=== PATIENT | male | born 1985 | race Two or more races ===

== ENCOUNTER 2022-11-01 23:25 | Inpatient (IN) | payer MEDICAID, OTHER, SELFPAY ==
--- NOTE | ~2022-11-01 | XR_ITS ---
EXAMINATION: XR CHEST CLINICAL INFORMATION: Chest pain COMPARISON: None TECHNIQUE: Frontal view of the chest was obtained. FINDINGS: Lung volumes are symmetric. No focal consolidation is seen. No evidence of pneumothorax, significant pleural effusion, or overt pulmonary edema. Cardiac silhouette appears borderline enlarged. No acute osseous findings are seen. XR/XR chest 1V IMPRESSION: No acute pulmonary findings. Borderline enlarged cardiac silhouette.
--- NOTE | ~2022-11-01 | CT_ITS ---
EXAMINATION: CT ANGIOGRAM OF THE CHEST; CONTRAST-ENHANCED CT OF THE ABDOMEN AND PELVIS INDICATION: Question PE, abdominal pain COMPARISON: Chest x-ray from earlier today TECHNIQUE: 100 MLO Omnipaque 350 IV contrast was utilized. Multidetector helical imaging was performed through the chest per PE protocol. Coronal, sagittal, and MIP images of the chest were created. In addition, multidetector helical imaging was performed through the abdomen and pelvis. Coronal and sagittal reformatted images were created at the technologist workstation. DOSE LOWERING TECHNIQUES: This CT examination was performed using dose optimization techniques as appropriate, variously including the following: - Automated exposure control - Adjustment of mA and/or kV according to patient size (this includes techniques or standardized protocols for targeted exams were dose is matched to indication/reason for exam; i.e. extremities or head) - Use of iterative reconstruction technique DLP: 2162 mGy-cm FINDINGS: Chest: While no central or lobar pulmonary embolus is seen, evaluation of the segmental and subsegmental vessels is limited due to bolus timing, and emboli at these levels cannot be entirely excluded. No evidence of aortic dissection. Limited detailed evaluation of the lung parenchyma due to respiratory motion artifact. No regions of consolidation bilaterally. No pneumothorax. Trace left pleural effusion noted. Visualized thyroid gland is unremarkable. No discrete mediastinal lymphadenopathy is seen. There is mild subcutaneous fat stranding throughout the mediastinum. Borderline cardiomegaly without pericardial effusion. Coronary artery calcifications are present. No axillary lymphadenopathy is present. Abdomen/Pelvis: Limited evaluation in some regions due to motion artifact. The liver demonstrates a nodular contour consistent with cirrhosis. No intrahepatic biliary ductal dilatation. The gallbladder is grossly unremarkable. The spleen is enlarged, measuring approximately 18.6 cm in length. The pancreas and adrenal glands appear unremarkable. Bilateral nephrograms are symmetric. No hydronephrosis. No obstructing renal or ureteral calculi are present. The urinary bladder is unremarkable. The prostate and seminal vesicles are unremarkable. The small and large bowel are unremarkable without evidence of obstruction or significant wall thickening, though evaluation for inflammation is somewhat limited in the setting of diffuse mesenteric edema. The appendix is not well seen with suspected to be nondilated. Mild volume of ascites is present predominantly in the upper abdomen. No free air is seen. Anasarca is present. Recanalized umbilical vein is noted along with upper abdominal varices. No retroperitoneal or pelvic lymphadenopathy is seen. No acute osseous findings. CT/CT abdomen pelvis w IV con IMPRESSION: 1. While no central or lobar pulmonary embolus is seen, evaluation of the segmental and subsegmental vessels is limited due to bolus timing, and emboli at these levels cannot be entirely excluded. 2. Cirrhotic morphology of the liver with sequela of portal hypertension including splenomegaly, varices, and mild ascites. 3. Trace left pleural effusion. 4. Coronary artery calcifications. Correlation with cardiac risk factors is recommended.
[2022-11-01 23:28] VITALS: BP 134/75; PULSE 105; RESP 19; TEMP 36.4; O2SAT 91; BMI 46.7
--- NOTE | 2022-11-01 23:34 | ECG_ITS ---
Test Reason : cp Blood Pressure : / mmHG Vent. Rate : 102 BPM Atrial Rate : 102 BPM P-R Int : 216 ms QRS Dur : 118 ms QT Int : 388 ms P-R-T Axes : 008 098 -09 degrees QTc Int : 505 ms Sinus tachycardia with 1st degree A-V block Rightward axis Incomplete right bundle branch block Cannot rule out Inferior infarct , age undetermined ST & T wave abnormality, consider anterior ischemia or RV strain Abnormal ECG No previous ECGs available Referred By: Abhi Velez Electronically Signed By:REGLA SMITH MD
[2022-11-01 23:50] LABS: MANUAL DIFF FLAG NO
[2022-11-01 23:51] LABS: Basophils Percent Auto 0.2 % (0-2); Eosinophils Percent Auto 0.2 % (0-4); Hematocrit 27.3 % (42.0-52.0); Hemoglobin 9.1 g/dl (14.0-18.0); Imm Gran Abs Auto 0.02 X10*3/uL (0.00-0.03); Imm Gran Pct Auto 0.4 % (0.0-0.4); Lymphocytes Absolute Auto 0.4 X10*3/uL (1.2-4.9); Lymphocytes Percent Auto 9.2 % (20-40); Mean Corpuscular HGB Conc 33.3 g/dl (31.0-36.0); Mean Corpuscular Hemoglobin 25.6 pg (27.0-33.0); Mean Corpuscular Volume 76.9 fL (80.0-98.0); Mean Platelet Volume 9.2 fL (9.4-12.4); Monocytes Absolute Auto 0.4 X10*3/uL (0.1-1.2); Monocytes Percent Auto 8.3 % (2-11); Neutrophils Absolute Auto 3.7 x10*3/uL (2.0-8.3); Neutrophils Percent Auto 81.7 % (45-73); Platelet Count 102 X10*3/uL (160-400); Red Blood Count 3.55 X10*6/uL (4.60-5.80); Red Cell Distribution Width 18.2 % (11.0-16.0); White Blood Count 4.5 X10*3/uL (4.8-10.8)
[2022-11-02] VITALS (13 sets, daily range): BP systolic 104–130; BP diastolic 52–81; PULSE 101–113; RESP 14–20; TEMP 36.5–37.5; O2SAT 92–96; BMI 44.5
[2022-11-02 00:12] LABS: Anion Gap 22 (12-20); Blood Urea Nitrogen 42 mg/dL (9-16); Calcium 8.7 mg/dL (8.4-10.2); Carbon Dioxide 18 mmol/L (22-29); Chloride 91 mmol/L (96-108); Creatinine Clr Calc Pharmacy 102.2; Estimated Glomerular Filt Rate 57; Glucose Random 114 mg/dL (60-115); Potassium 4.7 mmol/L (3.3-5.1); Sodium 126 mmol/L (135-145)
[2022-11-02 00:18] LABS: Troponin-I High Sensitivity 43.6 ng/L (<3.5-35.0)
[2022-11-02 00:34] LABS: Alanine Aminotransferase 17 U/L (0-40); Albumin Level 4.2 g/dL (3.5-5.0); Alkaline Phosphatase 80 U/L (39-117); Aspartate Amino Transferase 38 U/L (5-37); Bilirubin Direct 1.6 mg/dL (0.0-0.5); Ethanol 132 mg/dL; Lipase 94 U/L (8-78); Total Protein 9.5 g/dL (6.5-8.0)
[2022-11-02 00:39] LABS: B Type Natriuretic Peptide 903 pg/mL (<100)
[2022-11-02 00:53] LABS: Bilirubin Total 2.7 mg/dL (0.0-1.0)
--- NOTE | 2022-11-02 01:02 | ED_ITS ---
HPI - Chest Pain General Chief Complaint: Chest Pain Stated Complaint: Chest pain Time Seen by Provider: 11/01/22 23:57 History of Present Illness HPI narrative: Patient is a 36-year-old male with a long history of alcohol use. History of diabetes history of hypertension history of hypercholesterolemia. No history of smoking no history of [place] presented today with having chest tightness that is been ongoing for the last 4 days. Associated with shortness of breath and some diaphoresis. In addition patient has been consuming large quantities of alcohol since . Patient claims that from time to time he would drink. He has been on a binge. No abdominal pain positive generalized malaise. No history of pulmonary emboli not on blood thinners. Patient normally goes to [facility]. Never been to [facility] in the past. Positive increased leg swelling. Related Data Allergies Allergy/AdvReac Type Severity Reaction Status Date / Time No Known Allergies Allergy Verified 11/01/22 23:33 Review of Systems Review of Systems: Positive shortness of breath Positive chest pain Positive generalized malaise Yes all other systems are reviewed and are negative [facility] Past Medical History Attestation statement: The following information was validated with the patient. Social History Social History Advance Directives: No Advance Directives Information Provided: Yes Physical Exam Vital Signs: Vital Signs: Last Vital Signs Temp 97.6 F 11/01/22 23:28 Pulse 105 H 11/01/22 23:28 Resp 19 11/01/22 23:28 BP 134/75 11/01/22 23:28 Pulse Ox 91 L 11/01/22 23:28 O2 Del Method 11/01/22 23:28 BMI result Body Mass Index 46.7 Appearance: Alert. Oriented X3. No acute distress. Eyes: Pupils equal, round and reactive to light. ENT: Pharynx normal. Neck: Normal inspection. Neck supple. No lymph nodes noted. No crepitus CVS: Tachycardic but regular Respiratory: No respiratory distress. Breath sounds normal. No Wheezing. No rales Abdomen: Soft and nontender. No rigidity. No distention. good BS x4 Skin: Skin warm and dry. Normal skin color. Normal skin turgor. Extremities: Positive lower extremity edema. Neurovascular intact to all extremities. No Lacerations. No Rash Neuro: Oriented X 3. No motor deficit. No sensory deficit. Moving all extermities. No slurred speech. 2+ pitting edema bilateral lower extremity MDM - Chest Pain MDM Narrative Medical decision making narrative: Patient's EKG shows in the sinus pattern heart rate is 100 MS QRS is normal. QT is prolonged at 500. Patient has diffuse T-wave inversion over lead V2 [address] segment depression. We do not have an old EKG to compare. Patient's alcohol is 132. Troponin mildly elevated BMP elevated. Question cardiomyopathy causing the shortness of breath. Will also get a CTA of the chest to rule out the possibility of a PE. Patient's sodium was 126. COVID test is still pending. Chest x-ray showed no pneumonia no pneumothorax no CT evidence for congestive heart failure. 01:30 patient's case discussed with the hospitalist team. Agree to a plan of admission. CTA of the chest is still pending to rule out the possibility of p ulmonary emboli. CT of the abdomen will also be done at the same time. Differential Diagnosis Differential diagnosis: Likely fracture of rib, pneumothorax, unstable angina pectoris, atypical chest pain, st elevation myocardial infarction, costochondritis and chest pain Differential diagnosis: Alcoholic ketoacidosis, diabetic ketoacidosis, lactic acidosis, congestive heart failure Medical Records Data Attestation: I reviewed the patient's medical records. Lab Data Attestation: I reviewed the patient's lab results. Result diagrams: 11/01/22 23:45 11/01/22 23:45 Labs: Lab Results 11/01/22 11/01/22 11/01/22 Range/Units 23:45 23:45 23:45 WBC 4.5 L (4.8-10.8) X10*3/uL RBC 3.55 L (4.60-5.80) X10*6/uL Hgb 9.1 L (14.0-18.0) g/dl Hct 27.3 L (42.0-52.0) % MCV 76.9 L (80.0-98.0) fL MCH 25.6 L (27.0-33.0) pg MCHC 33.3 (31.0-36.0) g/dl RDW 18.2 H (11.0-16.0) % Plt Count 102 L (160-400) X10*3/uL MPV 9.2 L (9.4-12.4) fL Immature Gran % (Auto) 0.4 (0.0-0.4) % Neut % (Auto) 81.7 H (45-73) % Lymph % (Auto) 9.2 L (20-40) % [place] % (Auto) 8.3 (2-11) % Eos % (Auto) 0.2 (0-4) % Baso % (Auto) 0.2 (0-2) % Lymph # (Auto) 0.4 L (1.2-4.9) X10*3/uL [place] # (Auto) 0.4 (0.1-1.2) X10*3/uL Eos # (Auto) 0.0 (0.0-0.4) X10*3/uL Baso # (Auto) 0.0 (0.0-0.2) X10*3/uL Abs Immat Gran (auto) 0.02 (0.00-0.03) X10*3/uL Absolute Neuts (auto) 3.7 (2.0-8.3) x10*3/uL Absolute Nucleated RBC 0.000 (0.0-0.012) X10*3/uL Nucleated RBC % (auto) 0.0 (0.0-0.2) /100WBC O2 Saturation % ABG pH at Pt Temp (7.35-7.45) ABG pCO2 at Pt Temp (32-45) mmHg ABG pO2 at Pt Temp (83-108) mmHg ABG HCO3 (22-26) mmol/L ABG Base Excess (Actual) mmol/L Sodium 126 L (135-145) mmol/L Potassium 4.7 (3.3-5.1) mmol/L Chloride 91 L (96-108) mmol/L Carbon Dioxide 18 L (22-29) mmol/L Anion Gap 22 H (12-20) BUN 42 H (9-16) mg/dL Creatinine 1.41 H (0.5-1.4) mg/dL Estim Creat Clear Calc 102.2 Estimated GFR 57 Random Glucose 114 (60-115) mg/dL Calcium 8.7 (8.4-10.2) mg/dL Total Bilirubin 2.7 H (0.0-1.0) mg/dL Direct Bilirubin 1.6 H (0.0-0.5) mg/dL AST 38 H (5-37) U/L ALT 17 (0-40) U/L Alkaline Phosphatase 80 (39-117) U/L Troponin I High Sens 43.6 H (<3.5-35.0) ng/L B-Natriuretic Peptide (<100) pg/mL Total Protein 9.5 H (6.5-8.0) g/dL Albumin 4.2 (3.5-5.0) g/dL Lipase 94 H (8-78) U/L Ethyl Alcohol 132 mg/dL 11/01/22 11/02/22 Range/Units 23:45 00:59 WBC (4.8-10.8) X10*3/uL RBC (4.60-5.80) X10*6/uL Hgb (14.0-18.0) g/dl Hct (42.0-52.0) % MCV (80.0-98.0) fL MCH (27.0-33.0) pg MCHC (31.0-36.0) g/dl RDW (11.0-16.0) % Plt Count (160-400) X10*3/uL MPV (9.4-12.4) fL Immature Gran % (Auto) (0.0-0.4) % Neut % (Auto) (45-73) % Lymph % (Auto) (20-40) % [place] % (Auto) (2-11) % Eos % (Auto) (0-4) % Baso % (Auto) (0-2) % Lymph # (Auto) (1.2-4.9) X10*3/uL [place] # (Auto) (0.1-1.2) X10*3/uL Eos # (Auto) (0.0-0.4) X10*3/uL Baso # (Auto) (0.0-0.2) X10*3/uL Abs Immat Gran (auto) (0.00-0.03) X10*3/uL Absolute Neuts (auto) (2.0-8.3) x10*3/uL Absolute Nucleated RBC (0.0-0.012) X10*3/uL Nucleated RBC % (auto) (0.0-0.2) /100WBC O2 Saturation 94.0 % ABG pH at Pt Temp 7.51 H (7.35-7.45) ABG pCO2 at Pt Temp 20 L* (32-45) mmHg ABG pO2 at Pt Temp 72 L (83-108) mmHg ABG HCO3 16 L (22-26) mmol/L ABG Base Excess (Actual) -4.1 mmol/L Sodium (135-145) mmol/L Potassium (3.3-5.1) mmol/L Chloride (96-108) mmol/L Carbon Dioxide (22-29) mmol/L Anion Gap (12-20) BUN (9-16) mg/dL Creatinine (0.5-1.4) mg/dL Estim Creat Clear Calc Estimated GFR Random Glucose (60-115) mg/dL Calcium (8.4-10.2) mg/dL Total Bilirubin (0.0-1.0) mg/dL Direct Bilirubin (0.0-0.5) mg/dL AST (5-37) U/L ALT (0-40) U/L Alkaline Phosphatase (39-117) U/L Troponin I High Sens (<3.5-35.0) ng/L B-Natriuretic Peptide 903 H (<100) pg/mL Total Protein (6.5-8.0) g/dL Albumin (3.5-5.0) g/dL Lipase (8-78) U/L Ethyl Alcohol mg/dL ABG Data Attestation: I personally reviewed and interpreted this ABG as follows: Interpretation: Respiratory alkalosis Critical Care Time Critical Care Time Critical Care Time: Yes Total Critical Care Time: 40 Attestation: I have personally provided 40 minutes of critical care time exclusive of time spent on separately billable procedures. Time includes review of lab data, radiology results, discussion with consultants, and monitoring for potential decompensation. Interventions were performed as documented above Discharge Plan Discharge Clinical Impression: Chest pain, Congestive heart failure Patient Disposition: Admitted As Inpatient
[2022-11-02 01:09] LABS: ABG Base Excess -4.1 mmol/L; ABG HCO3 16 mmol/L (22-26); ABG pCO2 20 mmHg (32-45); ABG pH 7.51 (7.35-7.45); ABG pO2 72 mmHg (83-108)
[2022-11-02 01:46] LABS: Acetone, serum QL Negative (Negative)
[2022-11-02 01:50] LABS: Influenza A PCR NEGATIVE (Negative); Influenza B PCR NEGATIVE (Negative); Resp Syncy Virus RNA Qual PCR NEGATIVE (Negative); SARS COV2 PCR INHOUSE NEGATIVE (Negative)
[2022-11-02 01:52] LABS: Lactic Acid 2.1 mmol/L (0.5-2.0)
[2022-11-02] MEDS: iohexoL 350 MG/ML 100 ML INFUS..BTL IV (02:15)
--- NOTE | 2022-11-02 02:43 | PC.NURSE ---
PT's V/S are stable, pt is connected to the telemetry due to when nurse arrived to the room pt was saturating to 90 %. Pt has NC 2l, and the oxygen increase to 96%. PT's spouse is at bedside. Pt is on the monitor and it shows sinus tachy. Pt has pitting edema +4 bilaterally on his ankles. Pt lungs sounds are clear, and he is a/o x5. Pt S1&S2 sound pounding 110 per min. Pt's pupils were dilated 6mm. Pt denies consuming substances only ETOH. will continue to monitor.
[2022-11-02 02:50] LABS: ABG Refer to POC result
[2022-11-02 03:24] LABS: Reflex Lactate? Lactic Acid Added
[2022-11-02 04:24] LABS: Troponin-I High Sensitivity 45.2 ng/L (<3.5-35.0)
[2022-11-02 04:58] LABS: Osmolality Urine 232 mosm/kg (373-1093)
--- NOTE | 2022-11-02 05:00 | PM.IMHP ---
History of Present Illness Date of Service: 11/02/22 Chief Complaint: Leg and abdomen swelling This is a 36-year-old male with pertinent history of alcohol use disorder, liver cirrhosis, CHF, tet-hwbjwdu-zichrafbz diabetes mellitus who presents to the emergency department for evaluation of abdominal swelling/leg swelling/generalized fatigability. Patient has vague complaints at the time of my evaluation. He states he has pain all over including chest pain and abdominal pain. Patient states he is not doing well since . He has history of alcohol use disorder and had been sober for the past 2 months but since patient has been binge drinking. States he has been drinking a lot of beer, whiskey and Tequila every day. He has barely been eating or sleeping. Last drink was on the day of presentation. States he feels unwell. Had episodes of sweating and nausea earlier. Patient has also stopped taking his p.o. medications since . Has not taken his Lasix or spironolactone over the last 1 week. Patient was previously admitted at [facility] where he was significantly diuresed. States he has noticed significant swelling in his bilateral lower extremities. Also has abdominal swelling but no pain. No fever, chills, palpitations, changes in urinary habits Review of Systems Constitutional: Constitutional: Reports fatigue, Reports lethargy, Reports malaise and Reports weakness Cardiovascular: Cardiovascular: Reports no additional cardiovascular complaints Respiratory: Respiratory: Reports no additional respiratory complaints Gastrointestinal: Gastrointestinal: Reports bloating Genitourinary: Genitourinary: Reports no additional male genitourinary complaints Neurologic: Reports weakness Psychiatric: Psychiatric: Reports depression Endocrine: Endocrine: Reports fatigue [facility] Medical History Alcohol use disorder Cirrhosis Congestive heart failure Depression Non-insulin dependent type 2 diabetes mellitus Social History Alcohol intake: current Alcohol intake frequency: a few times a week Alcohol type: beer and hard liquor Smoked in Last 30 Days: No Use of substances other than those prescribed or required for medical reasons: No Advance Directives: No Advance Directives Information Provided: Yes Meds Allergies Allergy/AdvReac Type Severity Reaction Status Date / Time No Known Allergies Allergy Verified 11/01/22 23:33 Active Medications: Current Medications Acetaminophen (Acetaminophen 325 Mg Tablet) 650 mg PO Q6H PRN PRN Reason: Pain, Mild (Pain Scale 1-3) Dextrose (Dextrose 50 % 25 Gm/50 Ml Syringe) 25 gm IVPUSH Q15M PRN; Protocol PRN Reason: per Hypoglycemia Standing Ord. Furosemide (Furosemide 20 Mg/2 Ml Vial) 20 mg IVPUSH DAILY JIA; Protocol Glucose (Glucose Gel 15 Gm Gel..Gram.) 15 gm PO Q15M PRN; Protocol PRN Reason: per Hypoglycemia Standing Ord. Insulin Human Lispro (Insulin Lispro 100 Unit/Ml 3 Ml Vial) 0 unit SUBCUT QIDACHS JIA; Protocol Lactulose (Lactulose 20 Gm/30 Ml Solution) 20 gm PO TID JIA Melatonin (Melatonin 3 Mg Tablet) 6 mg PO BEDTIME PRN PRN Reason: Insomnia Ondansetron HCl (Ondansetron Hcl 4 Mg/2 Ml Vial) 4 mg IVPUSH Q8H PRN PRN Reason: Nausea and Vomiting Pharmacy Consult (Consult Rx Perform Med Rec) 1 each MISCELLANE ONCE PRN PRN Reason: Consult order Sodium Chloride (0.9 % Sodium Chloride Flush 3 Ml Syringe) 3 ml IVFLUSH QSHIFT [facility] Spironolactone (Spironolactone 25 Mg Tablet) 50 mg PO DAILY [facility]; Protocol Home Medications Medication Instructions Recorded Confirmed Last Taken Type furosemide 80 mg tablet 1 tab PO DAILY 11/02/22 11/02/22 Unknown History lisinopril 10 mg tablet 1 tab PO DAILY 11/02/22 11/02/22 Unknown History metformin 500 mg tablet 1 tab PO BID 11/02/22 11/02/22 Unknown History metoprolol succinate 25 mg 1 tab PO DAILY 11/02/22 11/02/22 Unknown History tablet,extended release 24 hr spironolactone 50 mg tablet 1 tab PO DAILY 11/02/22 11/02/22 Unknown History Physical Exam Vital Signs and Narrative: Vital Signs: Last Vital Signs Temp 98.0 F 11/02/22 04:54 Pulse 101 H 11/02/22 04:54 Resp 15 11/02/22 04:54 BP 104/52 L 11/02/22 04:54 Pulse Ox 94 11/02/22 04:54 O2 Del Method 11/02/22 04:54 O2 Flow Rate 2 11/02/22 03:57 BMI result Body Mass Index 46.7 Middle-aged male lying in bed in mild distress Tachycardic with regular rhythm, S1-S2 heard Decreased breath sound at bases Abdomen distended, nontender Patient is awake, alert and oriented to self, place, time and person ; no focal motor deficit Psych: Normal mood Bilateral pedal edema Results Labs CBC and Chem 7: 11/01/22 23:45 11/01/22 23:45 Labs: Laboratory Results - last 24 hr 11/01/22 11/01/22 11/01/22 23:45 23:45 23:45 MCV 76.9 L MCH 25.6 L MCHC 33.3 RDW 18.2 H Plt Count 102 L MPV 9.2 L Immature Gran % (Auto) 0.4 Neut % (Auto) 81.7 H Lymph % (Auto) 9.[address] [place] % (Auto) 8.3 Eos % (Auto) 0.2 Baso % (Auto) 0.2 Lymph # (Auto) 0.[address] [place] # (Auto) 0.4 Eos # (Auto) 0.0 Baso # (Auto) 0.0 Abs Immat Gran (auto) 0.02 Absolute Neuts (auto) 3.7 Absolute Nucleated RBC 0.000 Nucleated RBC % (auto) 0.0 O2 Saturation ABG pH at Pt Temp ABG pCO2 at Pt Temp ABG pO2 at Pt Temp ABG HCO3 ABG Base Excess (Actual) Anion Gap 22 H Estim Creat Clear Calc 102.2 Estimated GFR 57 Random Glucose 114 Lactic Acid Lactic Acid F/U @ 2Hr Calcium 8.7 Total Bilirubin 2.7 H Direct Bilirubin 1.6 H AST 38 H ALT 17 Alkaline Phosphatase 80 Troponin I High Sens 43.6 H B-Natriuretic Peptide Total Protein 9.5 H Albumin 4.2 Lipase 94 H Urine Osmolality Ur Random Sodium Ethyl Alcohol 132 Acetone, Qual Influenza Type A (PCR) Influenza Type B (PCR) RSV RNA Qual (PCR) SARS-CoV-2 RNA (RT-PCR) 11/01/22 11/02/22 11/02/22 23:45 00:59 01:03 MCV MCH MCHC RDW Plt Count MPV Immature Gran % (Auto) Neut % (Auto) Lymph % (Auto) [place] % (Auto) Eos % (Auto) Baso % (Auto) Lymph # (Auto) [place] # (Auto) Eos # (Auto) Baso # (Auto) Abs Immat Gran (auto) Absolute Neuts (auto) Absolute Nucleated RBC Nucleated RBC % (auto) O2 Saturation 94.0 ABG pH at Pt Temp 7.51 H ABG pCO2 at Pt Temp 20 L* ABG pO2 at Pt Temp 72 L ABG HCO3 16 L ABG Base Excess (Actual) -4.1 Anion Gap Estim Creat Clear Calc Estimated GFR Random Glucose Lactic Acid Lactic Acid F/U @ 2Hr Calcium Total Bilirubin Direct Bilirubin AST ALT Alkaline Phosphatase Troponin I High Sens B-Natriuretic Peptide 903 H Total Protein Albumin Lipase Urine Osmolality Ur Random Sodium Ethyl Alcohol Acetone, Qual Influenza Type A (PCR) NEGATIVE Influenza Type B (PCR) NEGATIVE RSV RNA Qual (PCR) NEGATIVE SARS-CoV-2 RNA (RT-PCR) NEGATIVE 11/02/22 11/02/22 11/02/22 01:19 01:19 03:53 MCV MCH MCHC RDW Plt Count MPV Immature Gran % (Auto) Neut % (Auto) Lymph % (Auto) [place] % (Auto) Eos % (Auto) Baso % (Auto) Lymph # (Auto) [place] # (Auto) Eos # (Auto) Baso # (Auto) Abs Immat Gran (auto) Absolute Neuts (auto) Absolute Nucleated RBC Nucleated RBC % (auto) O2 Saturation ABG pH at Pt Temp ABG pCO2 at Pt Temp ABG pO2 at Pt Temp ABG HCO3 ABG Base Excess (Actual) Anion Gap Estim Creat Clear Calc Estimated GFR Random Glucose Lactic Acid 2.1 H* Lactic Acid F/U @ 2Hr Calcium Total Bilirubin Direct Bilirubin AST ALT Alkaline Phosphatase Troponin I High Sens 45.2 H B-Natriuretic Peptide Total Protein Albumin Lipase Urine Osmolality Ur Random Sodium Ethyl Alcohol Acetone, Qual Negative Influenza Type A (PCR) Influenza Type B (PCR) RSV RNA Qual (PCR) SARS-CoV-2 RNA (RT-PCR) 11/02/22 11/02/22 11/02/22 03:53 04:31 04:31 MCV MCH MCHC RDW Plt Count MPV Immature Gran % (Auto) Neut % (Auto) Lymph % (Auto) [place] % (Auto) Eos % (Auto) Baso % (Auto) Lymph # (Auto) [place] # (Auto) Eos # (Auto) Baso # (Auto) Abs Immat Gran (auto) Absolute Neuts (auto) Absolute Nucleated RBC Nucleated RBC % (auto) O2 Saturation ABG pH at Pt Temp ABG pCO2 at Pt Temp ABG pO2 at Pt Temp ABG HCO3 ABG Base Excess (Actual) Anion Gap Estim Creat Clear Calc Estimated GFR Random Glucose Lactic Acid Lactic Acid F/U @ 2Hr 2.0 Calcium Total Bilirubin Direct Bilirubin AST ALT Alkaline Phosphatase Troponin I High Sens B-Natriuretic Peptide Total Protein Albumin Lipase Urine Osmolality 232 L Ur Random Sodium 30.0 Ethyl Alcohol Acetone, Qual Influenza Type A (PCR) Influenza Type B (PCR) RSV RNA Qual (PCR) SARS-CoV-2 RNA (RT-PCR) Imaging Radiologist's Impressions: Impressions Chest X-Ray 11/02/22 00:25 IMPRESSION: No acute pulmonary findings. Borderline enlarged cardiac silhouette. Abdomen/Pelvis CT 11/02/22 02:20 IMPRESSION: 1. While no central or lobar pulmonary embolus is seen, evaluation of the segmental and subsegmental vessels is limited due to bolus timing, and emboli at these levels cannot be entirely excluded. 2. Cirrhotic morphology of the liver with sequela of portal hypertension including splenomegaly, varices, and mild ascites. 3. Trace left pleural effusion. 4. Coronary artery calcifications. Correlation with cardiac risk factors is recommended. Chest CTA 11/02/22 02:22 IMPRESSION: 1. While no central or lobar pulmonary embolus is seen, evaluation of the segmental and subsegmental vessels is limited due to bolus timing, and emboli at these levels cannot be entirely excluded. 2. Cirrhotic morphology of the liver with sequela of portal hypertension including splenomegaly, varices, and mild ascites. 3. Trace left pleural effusion. 4. Coronary artery calcifications. Correlation with cardiac risk factors is recommended. Assessment and Plan (1) Cirrhosis: Status: Acute (2) Alcohol use disorder: Status: Acute (3) Congestive heart failure: Status: Acute (4) Depression: Status: Acute (5) Non-insulin dependent type 2 diabetes mellitus: Status: Acute Plan This is a 36-year-old male with pertinent history of alcohol use disorder, liver cirrhosis, CHF, [id number] diabetes mellitus who presents to the emergency department for evaluation of abdominal swelling/leg swelling/generalized fatigability. #. Alcohol intoxication -noted elevated ethanol level. Monitor CIWA. Patient states no history of alcohol withdrawal. Initiate phenobarb withdrawal protocol as appropriate -initiating thiamine and folic acid. Consulted care team and Addiction Team #. Acute decompensated liver cirrhosis -due to noncompliance with diuretics. Initiate furosemide and spironolactone. Also initiating lactulose. #. Acute decompensated congestive heart failure, unspecified ejection fraction -Noted elevated BNP. Concern for right-sided heart failure. Initiating diuretics as above. Transition to p.o. Lasix once euvolemia is achieved. Strict I's and O's. Low-sodium diet. Obtaining echocardiogram #. Hyponatremia -likely hypervolemic. Monitor sodium with diuretic use. Likely chronic with component of beer potomania and cirrhosis. #. Elevated creatinine -GARCIA versus CKD, unclear baseline. Monitor with diuretics. Avoid nephrotoxin #. Essential hypertension -hold beta-yasmeen and AKIL-inhibitor for renal perfusion in cirrhosis #. Thrombocytopenia -likely chronic due to cirrhosis #. Elevated troponin -likely type 2 due to increased demand #. Chronic anemia -obtaining iron studies and folic acid #. Fiv-cqlnhqb-bygwvpned diabetes mellitus -hold metformin. Initiating Accu-Cheks with sliding scale insulin #. Major depressive disorder and insomnia -patient states has been suffering from depression lately. Will consult psych DVT prophylaxis: Defer Lovenox due to thrombocytopenia. INR pending Diet: Low-sodium diet Full code Admit as inpatient and will require two night minimum hospital stay for IV diuretics and workup for CHF and cirrhosis Quality Stroke Does the patient have a stroke diagnosis?: No VTE Prior VTE?: No VTE Risk Level:: Medical - moderate - high VTE Device Contraindication: Treatment Not Indicated VTE Drug Contraindication: Treatment Not Indicated
[2022-11-02 05:06] LABS: Osmolality, Serum 307 mosm/kg (281-305)
[2022-11-02 05:09] LABS: Magnesium 2.4 mg/dL (1.6-2.6)
[2022-11-02] MEDS: Lactulose 20 GM/30 ML SOLUTION PO ×4 (05:47→23:25)
[2022-11-02] MEDS: Furosemide 20 MG/2 ML VIAL IVPUSH ×2 (05:48→07:59)
[2022-11-02] MEDS: Spironolactone 25 MG TABLET 50 MG PO ×2 (05:48→07:59)
[2022-11-02] MEDS: Thiamine HCL 100 MG TABLET PO ×2 (05:48→07:59)
[2022-11-02 06:00] LABS: MANUAL DIFF FLAG NO
[2022-11-02 06:03] LABS: Basophils Percent Auto 0.6 % (0-2); Eosinophils Percent Auto 1.1 % (0-4); Hematocrit 26.7 % (42.0-52.0); Imm Gran Abs Auto 0.02 X10*3/uL (0.00-0.03); Imm Gran Pct Auto 0.6 % (0.0-0.4); Lymphocytes Absolute Auto 0.6 X10*3/uL (1.2-4.9); Lymphocytes Percent Auto 15.6 % (20-40); Mean Corpuscular HGB Conc 33.7 g/dl (31.0-36.0); Mean Corpuscular Hemoglobin 26.1 pg (27.0-33.0); Mean Corpuscular Volume 77.4 fL (80.0-98.0); Mean Platelet Volume 9.4 fL (9.4-12.4); Monocytes Absolute Auto 0.3 X10*3/uL (0.1-1.2); Monocytes Percent Auto 8.2 % (2-11); Neutrophils Absolute Auto 2.6 x10*3/uL (2.0-8.3); Neutrophils Percent Auto 73.9 % (45-73); Platelet Count 106 X10*3/uL (160-400); Red Blood Count 3.45 X10*6/uL (4.60-5.80); Red Cell Distribution Width 18.5 % (11.0-16.0); White Blood Count 3.5 X10*3/uL (4.8-10.8)
[2022-11-02 06:08] LABS: INTERNATIONAL NORM RATIO 1.5 (0.9-1.1); Prothrombin Time 17.1 SEC (10.0-13.1)
[2022-11-02 06:24] LABS: Anion Gap 19 (12-20); Blood Urea Nitrogen 37 mg/dL (9-16); Calcium 8.7 mg/dL (8.4-10.2); Carbon Dioxide 18 mmol/L (22-29); Chloride 94 mmol/L (96-108); Creatinine Clr Calc Pharmacy 117.2; Estimated Glomerular Filt Rate > 60; Glucose Random 85 mg/dL (60-115); Potassium 4.6 mmol/L (3.3-5.1); Sodium 126 mmol/L (135-145)
[2022-11-02 06:27] LABS: Iron 105 mcg/dL (45-160); Percent Iron Saturation 22 % (15-50); Total Iron Binding Capacity 467 mcg/dL (228-428); Unsaturated Iron Binding 362 ug/dL
[2022-11-02 07:01] LABS: Folate 9.4 ng/mL (> or = 4.0)
[2022-11-02 07:14] LABS: Glucose, Whole Blood 97 mg/dL (60-115)
--- NOTE | 2022-11-02 07:16 | PHA.MEDREC ---
Pharmacy Consult ? Medication Reconciliation Pharmacy has completed the medication reconciliation. Reviewed med rec done by nursing (Kimberly Vee). Cross referenced with claim history to match.
[2022-11-02] MEDS: Folic Acid 1 MG TABLET PO (07:59)
[2022-11-02] MEDS: 0.9 % Sodium Chloride Flush 3 ML SYRINGE IVFLUSH ×3 (08:00→23:25)
--- NOTE | 2022-11-02 08:13 | PC.NURSE ---
Pt ate breakfast, ambulatory to bathroom. Increased SOB with exertion, improved with rest. SAT on room air after bathroom 89%, quickly increased to 95% on 2lpm via nc. Sinus tach on tele rate 108. Medicated with AM meds. Linen changed. BTB and appears comfortable.
--- NOTE | 2022-11-02 11:09 | PM.PSYCN ---
History of Present Illness Date of Service: 11/02/2022 Chief Complaint: Leg swelling Reason for Consult: depression Requesting physician: Génesis Garcia Sources of Information: patient interviewed and chart reviewed HPI Narrative: Heriberto is a 36-year-old male who carries a dx of AUD, MDD recurrent. He presented [place] [facility] [place]22 due to abdominal swelling, leg swelling, and generalized fatigue. He has past medical hx of liver cirrhosis, CHF, hx of R sided heart failure, [id number] diabetes, hyponatremia related to beer potonomia, GARCIA vs CKD, HTN, thrombocytopenia, and chronic anemia. Pt reported he had been sober for 2 months but relapsed over gi, drinking daily beer, whiskey, and tequila. Started on phenobarb protocol for withdrawal. Psych consult placed for medication due to pt reporting increased depression. I spoke with pt this evening. He denies hx of formal psych treatment, i.e. no hx of IPLOC, OP treatment, or trials on psychotropic medication. He reports depression has been worsening x 3 or 3.5 months ago, has long hx of depression, but says he was always able to function through it, not as bad as now. Pt is unsure why his depression is worsening. Sx include low appetite, poor sleep/ insomnia, low energy, avolition, anhedonia. Denies that alcohol is a trigger, as he says he is depressed even during sober time. He denies anxiety. Denies psychotic sx. Denies SI/SIB, feels safe. Denies past hx of self harm or suicide attempts. Past Psychiatric History: -Denies Medical Evaluation Reviewed: Yes [facility] Medical History Alcohol use disorder Cirrhosis Congestive heart failure Depression Non-insulin dependent type 2 diabetes mellitus Diagnostics Vital Signs (24Hr): Vital Signs - 24 hr 11/01/22 23:28 11/02/22 02:26 11/02/22 02:26 Temperature 97.6 F 97.7 F Pulse Rate 105 H 108 H Respiratory Rate 19 17 16 Blood Pressure 134/75 130/81 Pulse Oximetry 91 L 96 Oxygen Delivery Method Room Air Nasal Cannula Oxygen Flow Rate 2 11/02/22 03:57 11/02/22 04:43 11/02/22 04:54 Temperature 97.9 F 98.0 F Pulse Rate 104 H 102 H 101 H Respiratory Rate 17 15 Blood Pressure 124/70 114/61 104/52 L Pulse Oximetry 96 94 Oxygen Delivery Method Nasal Cannula Room Air Oxygen Flow Rate 2 11/02/22 05:53 11/02/22 07:09 11/02/22 07:22 Temperature 98.3 F Pulse Rate 102 H 105 H 104 H Respiratory Rate 18 18 Blood Pressure 108/62 125/69 120/67 Pulse Oximetry 94 93 Oxygen Delivery Method Room Air Room Air Oxygen Flow Rate 11/02/22 08:15 Temperature Pulse Rate Respiratory Rate Blood Pressure Pulse Oximetry 95 Oxygen Delivery Method Nasal Cannula Oxygen Flow Rate 2 BMI result Body Mass Index 46.7 Labs Results: 11/02/22 05:46 11/02/22 05:46 Labs: Laboratory Results - last 48 hr 11/01/22 11/01/22 11/01/22 23:45 23:45 23:45 WBC 4.5 L RBC 3.55 L Hgb 9.1 L Hct 27.3 L MCV 76.9 L MCH 25.6 L MCHC 33.3 RDW 18.2 H Plt Count 102 L MPV 9.2 L Immature Gran % (Auto) 0.4 Neut % (Auto) 81.7 H Lymph % (Auto) 9.2 L [place] % (Auto) 8.3 Eos % (Auto) 0.2 Baso % (Auto) 0.2 Lymph # (Auto) 0.4 L [place] # (Auto) 0.4 Eos # (Auto) 0.0 Baso # (Auto) 0.0 Abs Immat Gran (auto) 0.02 Absolute Neuts (auto) 3.7 Absolute Nucleated RBC 0.000 Nucleated RBC % (auto) 0.0 PT INR O2 Saturation ABG pH at Pt Temp ABG pCO2 at Pt Temp ABG pO2 at Pt Temp ABG HCO3 ABG Base Excess (Actual) Sodium 126 L Potassium 4.7 Chloride 91 L Carbon Dioxide 18 L Anion Gap 22 H BUN 42 H Creatinine 1.41 H Estim Creat Clear Calc 102.2 Estimated GFR 57 POC Glucose Random Glucose 114 Osmolality Lactic Acid Lactic Acid F/U @ 2Hr Calcium 8.7 Magnesium Iron TIBC % Saturation Unsat Iron Binding Total Bilirubin 2.7 H Direct Bilirubin 1.6 H AST 38 H ALT 17 Alkaline Phosphatase 80 Troponin I High Sens 43.6 H B-Natriuretic Peptide Total Protein 9.5 H Albumin 4.2 Lipase 94 H Folate Urine Osmolality Ur Random Sodium Ethyl Alcohol 132 Acetone, Qual Influenza Type A (PCR) Influenza Type B (PCR) RSV RNA Qual (PCR) SARS-CoV-2 RNA (RT-PCR) 11/01/22 11/02/22 11/02/22 23:45 00:59 01:03 WBC RBC Hgb Hct MCV MCH MCHC RDW Plt Count MPV Immature Gran % (Auto) Neut % (Auto) Lymph % (Auto) [place] % (Auto) Eos % (Auto) Baso % (Auto) Lymph # (Auto) [place] # (Auto) Eos # (Auto) Baso # (Auto) Abs Immat Gran (auto) Absolute Neuts (auto) Absolute Nucleated RBC Nucleated RBC % (auto) PT INR O2 Saturation 94.0 ABG pH at Pt Temp 7.51 H ABG pCO2 at Pt Temp 20 L* ABG pO2 at Pt Temp 72 L ABG HCO3 16 L ABG Base Excess (Actual) -4.1 Sodium Potassium Chloride Carbon Dioxide Anion Gap BUN Creatinine Estim Creat Clear Calc Estimated GFR POC Glucose Random Glucose Osmolality Lactic Acid Lactic Acid F/U @ 2Hr Calcium Magnesium Iron TIBC % Saturation Unsat Iron Binding Total Bilirubin Direct Bilirubin AST ALT Alkaline Phosphatase Troponin I High Sens B-Natriuretic Peptide 903 H Total Protein Albumin Lipase Folate Urine Osmolality Ur Random Sodium Ethyl Alcohol Acetone, Qual Influenza Type A (PCR) NEGATIVE Influenza Type B (PCR) NEGATIVE RSV RNA Qual (PCR) NEGATIVE SARS-CoV-2 RNA (RT-PCR) NEGATIVE 11/02/22 11/02/22 11/02/22 01:19 01:19 03:53 WBC RBC Hgb Hct MCV MCH MCHC RDW Plt Count MPV Immature Gran % (Auto) Neut % (Auto) Lymph % (Auto) [place] % (Auto) Eos % (Auto) Baso % (Auto) Lymph # (Auto) [place] # (Auto) Eos # (Auto) Baso # (Auto) Abs Immat Gran (auto) Absolute Neuts (auto) Absolute Nucleated RBC Nucleated RBC % (auto) PT INR O2 Saturation ABG pH at Pt Temp ABG pCO2 at Pt Temp ABG pO2 at Pt Temp ABG HCO3 ABG Base Excess (Actual) Sodium Potassium Chloride Carbon Dioxide Anion Gap BUN Creatinine Estim Creat Clear Calc Estimated GFR POC Glucose Random Glucose Osmolality Lactic Acid 2.1 H* Lactic Acid F/U @ 2Hr Calcium Magnesium Iron TIBC % Saturation Unsat Iron Binding Total Bilirubin Direct Bilirubin AST ALT Alkaline Phosphatase Troponin I High Sens 45.2 H B-Natriuretic Peptide Total Protein Albumin Lipase Folate Urine Osmolality Ur Random Sodium Ethyl Alcohol Acetone, Qual Negative Influenza Type A (PCR) Influenza Type B (PCR) RSV RNA Qual (PCR) SARS-CoV-2 RNA (RT-PCR) 11/02/22 11/02/22 11/02/22 03:53 04:31 04:31 WBC RBC Hgb Hct MCV MCH MCHC RDW Plt Count MPV Immature Gran % (Auto) Neut % (Auto) Lymph % (Auto) [place] % (Auto) Eos % (Auto) Baso % (Auto) Lymph # (Auto) [place] # (Auto) Eos # (Auto) Baso # (Auto) Abs Immat Gran (auto) Absolute Neuts (auto) Absolute Nucleated RBC Nucleated RBC % (auto) PT INR O2 Saturation ABG pH at Pt Temp ABG pCO2 at Pt Temp ABG pO2 at Pt Temp ABG HCO3 ABG Base Excess (Actual) Sodium Potassium Chloride Carbon Dioxide Anion Gap BUN Creatinine Estim Creat Clear Calc Estimated GFR POC Glucose Random Glucose Osmolality Lactic Acid Lactic Acid F/U @ 2Hr 2.0 Calcium Magnesium Iron TIBC % Saturation Unsat Iron Binding Total Bilirubin Direct Bilirubin AST ALT Alkaline Phosphatase Troponin I High Sens B-Natriuretic Peptide Total Protein Albumin Lipase Folate Urine Osmolality 232 L Ur Random Sodium 30.0 Ethyl Alcohol Acetone, Qual Influenza Type A (PCR) Influenza Type B (PCR) RSV RNA Qual (PCR) SARS-CoV-2 RNA (RT-PCR) 11/02/22 11/02/22 11/02/22 04:43 04:43 05:46 WBC RBC Hgb Hct MCV MCH MCHC RDW Plt Count MPV Immature Gran % (Auto) Neut % (Auto) Lymph % (Auto) [place] % (Auto) Eos % (Auto) Baso % (Auto) Lymph # (Auto) [place] # (Auto) Eos # (Auto) Baso # (Auto) Abs Immat Gran (auto) Absolute Neuts (auto) Absolute Nucleated RBC Nucleated RBC % (auto) PT 17.1 H INR 1.5 H O2 Saturation ABG pH at Pt Temp ABG pCO2 at Pt Temp ABG pO2 at Pt Temp ABG HCO3 ABG Base Excess (Actual) Sodium Potassium Chloride Carbon Dioxide Anion Gap BUN Creatinine Estim Creat Clear Calc Estimated GFR POC Glucose Random Glucose Osmolality 307 H Lactic Acid Lactic Acid F/U @ 2Hr Calcium Magnesium 2.4 Iron TIBC % Saturation Unsat Iron Binding Total Bilirubin Direct Bilirubin AST ALT Alkaline Phosphatase Troponin I High Sens B-Natriuretic Peptide Total Protein Albumin Lipase Folate Urine Osmolality Ur Random Sodium Ethyl Alcohol Acetone, Qual Influenza Type A (PCR) Influenza Type B (PCR) RSV RNA Qual (PCR) SARS-CoV-2 RNA (RT-PCR) 11/02/22 11/02/22 11/02/22 05:46 05:46 05:46 WBC 3.5 L RBC 3.45 L Hgb 9.0 L Hct 26.7 L MCV 77.4 L MCH 26.1 L MCHC 33.7 RDW 18.5 H Plt Count 106 L MPV 9.4 Immature Gran % (Auto) 0.6 H Neut % (Auto) 73.9 H Lymph % (Auto) 15.6 L [place] % (Auto) 8.2 Eos % (Auto) 1.1 Baso % (Auto) 0.6 Lymph # (Auto) 0.6 L [place] # (Auto) 0.3 Eos # (Auto) 0.0 Baso # (Auto) 0.0 Abs Immat Gran (auto) 0.02 Absolute Neuts (auto) 2.6 Absolute Nucleated RBC 0.000 Nucleated RBC % (auto) 0.0 PT INR O2 Saturation ABG pH at Pt Temp ABG pCO2 at Pt Temp ABG pO2 at Pt Temp ABG HCO3 ABG Base Excess (Actual) Sodium 126 L Potassium 4.6 Chloride 94 L Carbon Dioxide 18 L Anion Gap 19 BUN 37 H Creatinine 1.23 Estim Creat Clear Calc 117.2 Estimated GFR > 60 POC Glucose Random Glucose 85 Osmolality Lactic Acid Lactic Acid F/U @ 2Hr Calcium 8.7 Magnesium Iron 105 TIBC 467 H % Saturation 22 Unsat Iron Binding 362 Total Bilirubin Direct Bilirubin AST ALT Alkaline Phosphatase Troponin I High Sens B-Natriuretic Peptide Total Protein Albumin Lipase Folate Urine Osmolality Ur Random Sodium Ethyl Alcohol Acetone, Qual Influenza Type A (PCR) Influenza Type B (PCR) RSV RNA Qual (PCR) SARS-CoV-2 RNA (RT-PCR) 11/02/22 11/02/22 05:46 07:08 WBC RBC Hgb Hct MCV MCH MCHC RDW Plt Count MPV Immature Gran % (Auto) Neut % (Auto) Lymph % (Auto) [place] % (Auto) Eos % (Auto) Baso % (Auto) Lymph # (Auto) [place] # (Auto) Eos # (Auto) Baso # (Auto) Abs Immat Gran (auto) Absolute Neuts (auto) Absolute Nucleated RBC Nucleated RBC % (auto) PT INR O2 Saturation ABG pH at Pt Temp ABG pCO2 at Pt Temp ABG pO2 at Pt Temp ABG HCO3 ABG Base Excess (Actual) Sodium Potassium Chloride Carbon Dioxide Anion Gap BUN Creatinine Estim Creat Clear Calc Estimated GFR POC Glucose 97 Random Glucose Osmolality Lactic Acid Lactic Acid F/U @ 2Hr Calcium Magnesium Iron TIBC % Saturation Unsat Iron Binding Total Bilirubin Direct Bilirubin AST ALT Alkaline Phosphatase Troponin I High Sens B-Natriuretic Peptide Total Protein Albumin Lipase Folate 9.4 Urine Osmolality Ur Random Sodium Ethyl Alcohol Acetone, Qual Influenza Type A (PCR) Influenza Type B (PCR) RSV RNA Qual (PCR) SARS-CoV-2 RNA (RT-PCR) Imaging Radiology Impressions: ITS Impressions Chest X-Ray 11/02/22 00:25 IMPRESSION: No acute pulmonary findings. Borderline enlarged cardiac silhouette. Abdomen/Pelvis CT 11/02/22 02:20 IMPRESSION: 1. While no central or lobar pulmonary embolus is seen, evaluation of the segmental and subsegmental vessels is limited due to bolus timing, and emboli at these levels cannot be entirely excluded. 2. Cirrhotic morphology of the liver with sequela of portal hypertension including splenomegaly, varices, and mild ascites. 3. Trace left pleural effusion. 4. Coronary artery calcifications. Correlation with cardiac risk factors is recommended. Chest CTA 11/02/22 02:22 IMPRESSION: 1. While no central or lobar pulmonary embolus is seen, evaluation of the segmental and subsegmental vessels is limited due to bolus timing, and emboli at these levels cannot be entirely excluded. 2. Cirrhotic morphology of the liver with sequela of portal hypertension including splenomegaly, varices, and mild ascites. 3. Trace left pleural effusion. 4. Coronary artery calcifications. Correlation with cardiac risk factors is recommended. Mental Status Exam Mental Status Exam Narrative: A&O. Obese, hospital attire, malodorous, unkempt. Poor eye contact, inattentive, tired as he just woke up. No Tics or Tremors. No abnormal involuntary movements. Calm, cooperative, engaged. Non-pressured speech, spontaneous with regular rate and rhythm, normal volume and prosody. No prolonged speech latency or dysarthria. Mood is ?depressed,? affect is dysphoric. Denies SI/SIB/HI upon inquiry. Denies A/VH or delusional thought content. Thoughts are guilt ridden, hopelessness. No known cognitive or memory impairment. Insight/ Judgment fair and adequate. Medications Medications Current Medications Acetaminophen (Acetaminophen 325 Mg Tablet) 650 mg PO Q6H PRN PRN Reason: Pain, Mild (Pain Scale 1-3) Dextrose (Dextrose 50 % 25 Gm/50 Ml Syringe) 25 gm IVPUSH Q15M PRN; Protocol PRN Reason: per Hypoglycemia Standing Ord. Folic Acid (Folic Acid 1 Mg Tablet) 1 mg PO DAILY [facility] Last Admin: 11/02/22 07:59 Dose: 1 mg Furosemide (Furosemide 20 Mg/2 Ml Vial) 20 mg IVPUSH DAILY [facility]; Protocol Last Admin: 11/02/22 07:59 Dose: 20 mg Glucose (Glucose Gel 15 Gm Gel..Gram.) 15 gm PO Q15M PRN; Protocol PRN Reason: per Hypoglycemia Standing Ord. Insulin Human Lispro (Insulin Lispro 100 Unit/Ml 3 Ml Vial) 0 unit SUBCUT QIDACHS [facility]; Protocol Last Admin: 11/02/22 07:14 Dose: Not Given Lactulose (Lactulose 20 Gm/30 Ml Solution) 20 gm PO TID [facility] Last Admin: 11/02/22 07:59 Dose: 20 gm Melatonin (Melatonin 3 Mg Tablet) 6 mg PO BEDTIME PRN PRN Reason: Insomnia Ondansetron HCl (Ondansetron Hcl 4 Mg/2 Ml Vial) 4 mg IVPUSH Q8H PRN PRN Reason: Nausea and Vomiting Pharmacy Consult (Consult Rx Perform Med Rec) 1 each MISCELLANE ONCE PRN PRN Reason: Consult order Sodium Chloride (0.9 % Sodium Chloride Flush 3 Ml Syringe) 3 ml IVFLUSH QSHIFT [facility] Last Admin: 11/02/22 08:00 Dose: 3 ml Spironolactone (Spironolactone 25 Mg Tablet) 50 mg PO DAILY [facility]; Protocol Last Admin: 11/02/22 07:59 Dose: 50 mg Thiamine HCl (Thiamine Hcl 100 Mg Tablet) 100 mg PO DAILY [facility] Last Admin: 11/02/22 07:59 Dose: 100 mg Allergies Allergies Allergy/AdvReac Type Severity Reaction Status Date / Time No Known Allergies Allergy Verified 11/01/22 23:33 Assessment & Plan Assessment & Plan (1) Alcohol use disorder: Status: Acute Code(s): F19.90 - Other psychoactive substance use, unspecified, uncomplicated (2) MDD (major depressive disorder), recurrent episode, moderate: Status: Acute Code(s): F33.1 - Major depressive disorder, recurrent, moderate Plan Plan: Will start lexapro 10 mg daily for sx of depression, reviewed risks and benefits. Pt has been sleeping today, started on phenobarb for alcohol withdrawal, on melatonin. If he continues to report poor sleep, may consider PRN trazodone. At this time pt does not meet criteria for psych IPLOC, as he feels safe, no imminent safety concerns. I have shared this with Korina Riggs Thank you for this consultation. If you have any questions or concerns, please do not hesitate to contact psychiatry service. I spent minutes with the patient and/or on the patient floor today, greater than?50% of which was spent counseling/coordinating care. Patient educated on: medication risk/benefits and therapeutic strategies
[2022-11-02 11:46] LABS: Glucose, Whole Blood 116 mg/dL (60-115)
[2022-11-02 12:06] LABS: Glucose, Whole Blood 119 mg/dL (60-115)
[2022-11-02] MEDS: PHENobarbitaL sodium 130 MG/ML IM ONCE 226 MG IM (13:10)
[2022-11-02 13:43] LABS: D Dimer High Sensitivity 1070 NG/ML
[2022-11-02 13:54] LABS: Troponin-I High Sensitivity 22.8 ng/L (<3.5-35.0)
--- NOTE | 2022-11-02 13:56 | PC.NURSE ---
Addendum entered by Ana Rueda 11/02/22 14:32: at bedside Original Note: pt. tachy in the 115s. I reconnected him to heart monitor after he had disconnected to go to the bathroom. eating lunch. mother at the bedside
--- NOTE | 2022-11-02 15:34 | PM.EVENT ---
Event Note Date of Service: 11/02/22 Event Note: seen and examined this morning admitted earlier today for sob, chest pain decompensated liver cirrhosis exam unchanged plan as per H&P with the following additions: due to EKG changes - cardiology consult added. no previous EKG available for comparison will start phenobarbitol to prevent alcohol withdrawal as patient has been drinking heavily since . He is vague about exactly how much alcohol he consumes, stating a lot and declining to elaborate GARCIA. creatinine from 07/23 was 0.80, trending down from yesterday, but still above baseline- follow BMP records obtained from [facility] - pt admitted 07/22-07/25 with sob treated for right heart failure and started on diuretics. ECHO with EF 55-60% with possible right ventricular dysfunction (study limited by body habitus) hepatitis B/C screening negative was d/c with plan for outpatient sleep study, GI follow up for EGD/colonoscopy for evaluation of anemia and cardiology follow up
[2022-11-02] MEDS: PHENobarbitaL sodium 130 MG/ML VIAL IM Q3Hx2 170 MG IM ×2 (17:25→19:56)
[2022-11-02 17:26] LABS: Glucose, Whole Blood 119 mg/dL (60-115)
--- NOTE | 2022-11-02 20:12 | PC.NURSE ---
Attempted to call report, S3 nurse not available at this time. Will re-attempt later. This RN did tigchristie Jensen (floor nurse)
[2022-11-02 23:31] LABS: Glucose, Whole Blood 125 mg/dL (60-115)
--- NOTE | 2022-11-03 | ECG_ITS ---
Test Reason : precondial twave inversions Blood Pressure : / mmHG Vent. Rate : 098 BPM Atrial Rate : 098 BPM P-R Int : 186 ms QRS Dur : 114 ms QT Int : 372 ms P-R-T Axes : 037 098 003 degrees QTc Int : 474 ms Normal sinus rhythm Incomplete right bundle branch block Right ventricular hypertrophy with repolarization abnormality T wave abnormality, consider inferior ischemia Prolonged QT Abnormal ECG No previous ECGs available Referred By: Abhi Velez Electronically Signed By:REGLA SMITH MD
[2022-11-03 04:00] VITALS: BP 117/63; PULSE 97; RESP 18; TEMP 37.3; O2SAT 96
[2022-11-03 05:56] LABS: Hematocrit 24.9 % (42.0-52.0); Hemoglobin 8.4 g/dl (14.0-18.0); Mean Corpuscular HGB Conc 33.7 g/dl (31.0-36.0); Mean Corpuscular Hemoglobin 26.4 pg (27.0-33.0); Mean Corpuscular Volume 78.3 fL (80.0-98.0); Mean Platelet Volume 9.2 fL (9.4-12.4); Red Blood Count 3.18 X10*6/uL (4.60-5.80); White Blood Count 3.6 X10*3/uL (4.8-10.8)
[2022-11-03 05:57] LABS: Platelet Count 92 X10*3/uL (160-400)
[2022-11-03 06:32] LABS: Alanine Aminotransferase 16 U/L (0-40); Albumin Level 3.8 g/dL (3.5-5.0); Alkaline Phosphatase 69 U/L (39-117); Anion Gap 17 (12-20); Aspartate Amino Transferase 42 U/L (5-37); Bilirubin Direct 1.8 mg/dL (0.0-0.5); Blood Urea Nitrogen 25 mg/dL (9-16); Carbon Dioxide 21 mmol/L (22-29); Chloride 96 mmol/L (96-108); Creatinine Clr Calc Pharmacy 125.2; Estimated Glomerular Filt Rate > 60; Glucose Random 97 mg/dL (60-115); Potassium 4.3 mmol/L (3.3-5.1); Sodium 130 mmol/L (135-145); Total Protein 8.7 g/dL (6.5-8.0)
[2022-11-03 06:41] LABS: Bilirubin Total 3.3 mg/dL (0.0-1.0)
[2022-11-03 07:33] LABS: Glucose, Whole Blood 99 mg/dL (60-115)
[2022-11-03 07:39] VITALS: BP 115/70; PULSE 99; RESP 20; TEMP 36.8; O2SAT 97
[2022-11-03] MEDS: Furosemide 20 MG/2 ML VIAL IVPUSH (07:51)
[2022-11-03] MEDS: Lactulose 20 GM/30 ML SOLUTION PO ×2 (07:52→19:48)
[2022-11-03] MEDS: Folic Acid 1 MG TABLET PO (07:52)
[2022-11-03] MEDS: Spironolactone 25 MG TABLET 50 MG PO (07:52)
[2022-11-03] MEDS: Thiamine HCL 100 MG TABLET PO (07:52)
[2022-11-03] MEDS: Escitalopram Oxalate 10 MG TABLET PO (07:52)
[2022-11-03] MEDS: PHENobarbitaL 30 MG TABLET 60 MG PO ×2 (07:52→19:48)
[2022-11-03] MEDS: 0.9 % Sodium Chloride Flush 3 ML SYRINGE IVFLUSH ×3 (07:52→19:48)
--- NOTE | 2022-11-03 09:23 | P.PNIM_ITS ---
Subjective Subjective Date of Service: 11/03/22 Interval History: seen and examined this morning, observed sitting up in chair follow up for chest pain, dyspnea, decompensated liver cirrhosis patient denies any chest pain at this time reporting improvement in breathing overall, but still with orthopnea, PND no abdominal pain, nausea, vomiting Review of Systems Review of Systems: Yes all other systems are reviewed and are negative Constitutional Constitutional: Denies chills and Denies fever(s) Cardiovascular Cardiovascular: Denies chest pain, Denies palpitations, Reports dyspnea on exertion, Reports orthopnea and Reports paroxysmal nocturnal dyspnea Respiratory Respiratory: Denies cough and Reports dyspnea on exertion Endocrine Endocrine: Denies palpitations Physical Exam Vital Signs: Vital Signs: Last Vital Signs Temp 98.3 F 11/03/22 07:39 Pulse 99 11/03/22 07:39 Resp 20 11/03/22 07:39 BP 115/70 11/03/22 07:39 Pulse Ox 97 11/03/22 07:39 O2 Del Method 11/03/22 07:39 O2 Flow Rate 4 11/03/22 07:39 BMI result Body Mass Index 44.5 Const: General: cooperative, alert and awake Nutritional Appearance: obese Orientation/consciousness: patient oriented x3 Resp: Other: dim at bases, otherwise clear Effort & Inspection: normal respiratory effort and able to speak in complete sentences Cardio: Rate: regular rate Heart sounds: S1 normal heart sound present and S2 normal heart sound present GI: Inspection: No distended Palpation (GI): Soft to palpation and nontender Neuro: General: patient oriented x3 and CN's II-XI intact bilaterally Extrem: Other: b/l pedal edema Objective Data Active Medications Acetaminophen (Acetaminophen 325 Mg Tablet) 650 mg PO Q6H PRN PRN Reason: Pain, Mild (Pain Scale 1-3) Dextrose (Dextrose 50 % 25 Gm/50 Ml Syringe) 25 gm IVPUSH Q15M PRN; Protocol PRN Reason: per Hypoglycemia Standing Ord. Escitalopram Oxalate (Escitalopram Oxalate 10 Mg Tablet) 10 mg PO DAILY [facility] Last Admin: 11/03/22 07:52 Dose: 10 mg Documented By: JAVID Folic Acid (Folic Acid 1 Mg Tablet) 1 mg PO DAILY [facility] Last Admin: 11/03/22 07:52 Dose: 1 mg Documented By: JAVID Furosemide (Furosemide 20 Mg/2 Ml Vial) 20 mg IVPUSH DAILY [facility]; Protocol Last Admin: 11/03/22 07:51 Dose: 20 mg Documented By: JAVID Glucose (Glucose Gel 15 Gm Gel..Gram.) 15 gm PO Q15M PRN; Protocol PRN Reason: per Hypoglycemia Standing Ord. Insulin Human Lispro (Insulin Lispro 100 Unit/Ml 3 Ml Vial) 0 unit SUBCUT QIDACHS [facility]; Protocol Last Admin: 11/03/22 07:43 Dose: Not Given Documented By: JAVID Non-Admin Reason: No Insulin Coverage Lactulose (Lactulose 20 Gm/30 Ml Solution) 20 gm PO TID [facility] Last Admin: 11/03/22 07:52 Dose: 20 gm Documented By: JAVID Melatonin (Melatonin 3 Mg Tablet) 6 mg PO BEDTIME PRN PRN Reason: Insomnia Ondansetron HCl (Ondansetron Hcl 4 Mg/2 Ml Vial) 4 mg IVPUSH Q8H PRN PRN Reason: Nausea and Vomiting Pharmacy Consult (Consult Rx Perform Med Rec) 1 each MISCELLANE ONCE PRN PRN Reason: Consult order Pharmacy Consult (Consult Rx Etoh Phenob Im/Po) 1 each MISCELLANE ONCE PRN; Protocol PRN Reason: Consult order Phenobarbital (Phenobarbital 30 Mg Tablet) 60 mg PO BID [facility]; Protocol Stop: 11/04/22 21:01 Last Admin: 11/03/22 07:52 Dose: 60 mg Documented By: JAVID Phenobarbital (Phenobarbital 30 Mg Tablet) 30 mg PO BID [facility]; Protocol Stop: 11/06/22 21:01 Phenobarbital (Phenobarbital 30 Mg Tablet) 30 mg PO DAILY [facility]; Protocol Stop: 11/08/22 09:01 Sodium Chloride (0.9 % Sodium Chloride Flush 3 Ml Syringe) [facility] Last Admin: 11/03/22 07:52 Dose: 3 ml Documented By: JAVID Spironolactone (Spironolactone 25 Mg Tablet) 50 mg PO DAILY [facility]; Protocol Last Admin: 11/03/22 07:52 Dose: 50 mg Documented By: JAVID Thiamine HCl (Thiamine Hcl 100 Mg Tablet) 100 mg PO DAILY [facility] Last Admin: 11/03/22 07:52 Dose: 100 mg Documented By: [email or web address] Labs CBC & Chem 7: 11/03/22 05:23 11/03/22 05:23 Labs: Laboratory Results - last 24 hr 11/02/22 11/02/22 11/02/22 11:41 12:00 13:16 MCV MCH MCHC RDW Plt Count MPV Absolute Nucleated RBC Nucleated RBC % (auto) D-Dimer High Sensitivty 1070 Anion Gap Estim Creat Clear Calc Estimated GFR POC Glucose 116 H 119 H Random Glucose Calcium Total Bilirubin Direct Bilirubin AST ALT Alkaline Phosphatase Troponin I High Sens Total Protein Albumin 11/02/22 11/02/22 11/02/22 13:16 17:22 22:40 MCV MCH MCHC RDW Plt Count MPV Absolute Nucleated RBC Nucleated RBC % (auto) D-Dimer High Sensitivty Anion Gap Estim Creat Clear Calc Estimated GFR POC Glucose 119 H 125 H Random Glucose Calcium Total Bilirubin Direct Bilirubin AST ALT Alkaline Phosphatase Troponin I High Sens 22.8 Total Protein Albumin 11/03/22 11/03/22 11/03/22 05:23 05:23 07:26 MCV 78.3 L MCH 26.4 L MCHC 33.7 RDW 19.0 H Plt Count 92 L MPV 9.2 L Absolute Nucleated RBC 0.000 Nucleated RBC % (auto) 0.0 D-Dimer High Sensitivty Anion Gap 17 Estim Creat Clear Calc 125.2 Estimated GFR > 60 POC Glucose 99 Random Glucose 97 Calcium 9.0 Total Bilirubin 3.3 H Direct Bilirubin 1.8 H AST 42 H ALT 16 Alkaline Phosphatase 69 Troponin I High Sens Total Protein 8.7 H Albumin 3.8 Assessment and Plan (1) Cirrhosis: Status: Acute (2) Chest pain: Status: Acute Plan This is a 36-year-old male with pertinent history of alcohol use disorder, liver cirrhosis, CHF, bhi-jvawtro-izvucybsu diabetes mellitus who presents to the emergency department for evaluation of abdominal swelling/leg swelling/generalized fatigability. Acute respiratory failure with hypoxia r/t decomensated liver cirrhosis/CHF supplemental oxygen, wean as toelrated Acute decompensated liver cirrhosis due to noncompliance with diuretics continue IV furosemide continue spironolactone having multiple BM, will decrease dose of lactulose Alcohol use disorder with likely impending alcohol withdrawal continue phenobarbatol protocol, supplementation with thiamine and folic acid Addiction medicine consult pending Acute on chronic HFpEF/probable right heart failure records obtained from [facility] - pt admitted 07/22-07/25 with sob treated for right heart failure and started on diuretics. ECHO with EF 55-60% with possible right ventricular dysfunction (study limited by body habitus) Follow I's and O's, Low-sodium diet cardiology consult pending Hyponatremia likely r/t to hypervolemia r/t CHF/cirrhosis sodium up to 130 GARCIA creatinine from 07/23 was 0.80 continues to trend down follow BMP Essential hypertension hold beta-yasmeen and AKIL-inhibitor for renal perfusion in cirrhosis Thrombocytopenia likely chronic due to cirrhosis follow CBC Elevated troponin trops have remained flat initially with chest pain, now resolved EKG with concerning changes, but no previous for comparison CTA with no central or lobar pulmonary embolus seen ; segmental and subsegmental vessels limited due to bolus timing cardiology consult pending Chronic anemia had planned for outpatient EGD/cononoscopy after d/c from [facility] follow CBC [id number] diabetes mellitus hold metformin POCs, SSI Major depressive disorder and insomnia seen by psych, started on lexapro Morbid obesity BMI 44.5 weight loss encouraged DVT prophylaxis: Defer Lovenox due to thrombocytopenia. INR pending Diet: Low-sodium diet Full code Requires ongoing inpatient hospitalization for IV diuretics and workup for CHF and cirrhosis Quality Stroke Does the patient have a stroke diagnosis?: No VTE Prior VTE?: No VTE Risk Level:: Medical - moderate - high VTE Device Contraindication: Treatment Not Indicated VTE Drug Contraindication: Treatment Not Indicated
[2022-11-03 11:22] LABS: Glucose, Whole Blood 91 mg/dL (60-115)
--- NOTE | 2022-11-03 11:59 | P.CONCA_ITS ---
History of Present Illness History of Present Illness Date of Service: 11/03/22 Requesting physician: Korina Riggs Chief complaint: Leg swelling, anterior T wave inversions Narrative: 36-year-old gentleman who we are consulted for abnormal EKG. It appears he had recent admission included [facility] where he was admitted for alcoholism and cirrhosis of liver. I have not reviewed his echocardiogram performed there but as per the medicine team the LV function was preserved but there was some questions about right ventricular dysfunction it was not visualized due to his body habitus. It appears he has been drinking alcohol from age to and has cirrhosis of liver. He is presenting to us with the edema. At the time I enter the room he was sleeping ends were snoring heavily and I think he has underlying sleep apnea. He is denying any active issues right now. Mental status also is improving. He definitely has bilateral edema but his legs are very hard and there is no pitting specially on the right side and I do not know whether this is lymphedema. His high sensitivity troponin levels are not significantly elevated. He is laying flat without any significant shortness of breath. [facility], [facility] Past Medical History Medical History Alcohol use disorder Cirrhosis Congestive heart failure Depression Non-insulin dependent type 2 diabetes mellitus Social History Social History Household Members: Spouse Housing: House Do you presently have visiting nurse or other home services: No Alcohol intake: current Alcohol intake frequency: a few times a week Alcohol type: beer and hard liquor Patient Tobacco Use Status: Never used Tobacco Advance Directives Date on File: 11/02/22 Meds Allergies Allergy/AdvReac Type Severity Reaction Status Date / Time No Known Allergies Allergy Verified 11/01/22 23:33 Active Medications: Current Medications Acetaminophen (Acetaminophen 325 Mg Tablet) 650 mg PO Q6H PRN PRN Reason: Pain, Mild (Pain Scale 1-3) Dextrose (Dextrose 50 % 25 Gm/50 Ml Syringe) 25 gm IVPUSH Q15M PRN; Protocol PRN Reason: per Hypoglycemia Standing Ord. Escitalopram Oxalate (Escitalopram Oxalate 10 Mg Tablet) 10 mg PO DAILY [facility] Last Admin: 11/03/22 07:52 Dose: 10 mg Folic Acid (Folic Acid 1 Mg Tablet) 1 mg PO DAILY [facility] Last Admin: 11/03/22 07:52 Dose: 1 mg Furosemide (Furosemide 20 Mg/2 Ml Vial) 20 mg IVPUSH DAILY [facility]; Protocol Last Admin: 11/03/22 07:51 Dose: 20 mg Glucose (Glucose Gel 15 Gm Gel..Gram.) 15 gm PO Q15M PRN; Protocol PRN Reason: per Hypoglycemia Standing Ord. Insulin Human Lispro (Insulin Lispro 100 Unit/Ml 3 Ml Vial) 0 unit SUBCUT QIDACHS [facility]; Protocol Last Admin: 11/03/22 11:29 Dose: Not Given Lactulose (Lactulose 20 Gm/30 Ml Solution) 20 gm PO BID [facility] Melatonin (Melatonin 3 Mg Tablet) 6 mg PO BEDTIME PRN PRN Reason: Insomnia Ondansetron HCl (Ondansetron Hcl 4 Mg/2 Ml Vial) 4 mg IVPUSH Q8H PRN PRN Reason: Nausea and Vomiting Pharmacy Consult (Consult Rx Perform Med Rec) 1 each MISCELLANE ONCE PRN PRN Reason: Consult order Pharmacy Consult (Consult Rx Etoh Phenob Im/Po) 1 each MISCELLANE ONCE PRN; Protocol PRN Reason: Consult order Phenobarbital (Phenobarbital 30 Mg Tablet) 60 mg PO BID [facility]; Protocol Stop: 11/04/22 21:01 Last Admin: 11/03/22 07:52 Dose: 60 mg Phenobarbital (Phenobarbital 30 Mg Tablet) 30 mg PO BID [facility]; Protocol Stop: 11/06/22 21:01 Phenobarbital (Phenobarbital 30 Mg Tablet) 30 mg PO DAILY [facility]; Protocol Stop: 11/08/22 09:01 Sodium Chloride (0.9 % Sodium Chloride Flush 3 Ml Syringe) [facility] Last Admin: 11/03/22 07:52 Dose: 3 ml Spironolactone (Spironolactone 25 Mg Tablet) 50 mg PO DAILY [facility]; Protocol Last Admin: 11/03/22 07:52 Dose: 50 mg Thiamine HCl (Thiamine Hcl 100 Mg Tablet) 100 mg PO DAILY [facility] Last Admin: 11/03/22 07:52 Dose: 100 mg Home Medications Medication Instructions Recorded Confirmed Last Taken Type furosemide 80 mg tablet 1 tab PO DAILY 11/02/22 11/02/22 Unknown History lisinopril 10 mg tablet 1 tab PO DAILY 11/02/22 11/02/22 Unknown History metformin 500 mg tablet 1 tab PO BID 11/02/22 11/02/22 Unknown History metoprolol succinate 25 mg 1 tab PO DAILY 11/02/22 11/02/22 Unknown History tablet,extended release 24 hr spironolactone 50 mg tablet 1 tab PO DAILY 11/02/22 11/02/22 Unknown History Physical Exam Vital Signs: Vital Signs: Last Vital Signs Temp 98.3 F 11/03/22 07:39 Pulse 99 11/03/22 07:39 Resp 20 11/03/22 07:39 BP 115/70 11/03/22 07:39 Pulse Ox 97 11/03/22 07:39 O2 Del Method 11/03/22 07:39 O2 Flow Rate 4 11/03/22 07:39 BMI result Body Mass Index 44.5 GENERAL APPEARANCE: in no acute distress, herpes. NECK: no carotid bruit, no jugular venous distention. SKIN: no suspicious lesions, warm and dry. HEART: no murmurs, regular rate and rhythm. Tachycardic. LUNGS: clear to auscultation bilaterally. ABDOMEN: soft, nontender. EXTREMITIES: Peripheral edema. Right leg nonpitting edema. PERIPHERAL PULSES: equal. NEUROLOGIC: No gross deficits, AAO X 3 Objective Labs and Meds Result diagrams: 11/03/22 05:23 11/03/22 05:23 Lab results: Laboratory Results - last 24 hr 11/02/22 11/02/22 11/02/22 12:00 13:16 13:16 WBC RBC Hgb Hct MCV MCH MCHC RDW Plt Count MPV Absolute Nucleated RBC Nucleated RBC % (auto) D-Dimer High Sensitivty 1070 Sodium Potassium Chloride Carbon Dioxide Anion Gap BUN Creatinine Estim Creat Clear Calc Estimated GFR POC Glucose 119 H Random Glucose Calcium Total Bilirubin Direct Bilirubin AST ALT Alkaline Phosphatase Troponin I High Sens 22.8 Total Protein Albumin 11/02/22 11/02/22 11/03/22 17:22 22:40 05:23 WBC 3.6 L RBC 3.18 L Hgb 8.4 L Hct 24.9 L MCV 78.3 L MCH 26.4 L MCHC 33.7 RDW 19.0 H Plt Count 92 L MPV 9.2 L Absolute Nucleated RBC 0.000 Nucleated RBC % (auto) 0.0 D-Dimer High Sensitivty Sodium Potassium Chloride Carbon Dioxide Anion Gap BUN Creatinine Estim Creat Clear Calc Estimated GFR POC Glucose 119 H 125 H Random Glucose Calcium Total Bilirubin Direct Bilirubin AST ALT Alkaline Phosphatase Troponin I High Sens Total Protein Albumin 11/03/22 11/03/22 11/03/22 05:23 07:26 11:16 WBC RBC Hgb Hct MCV MCH MCHC RDW Plt Count MPV Absolute Nucleated RBC Nucleated RBC % (auto) D-Dimer High Sensitivty Sodium 130 L Potassium 4.3 Chloride 96 Carbon Dioxide 21 L Anion Gap 17 BUN 25 H Creatinine 1.12 Estim Creat Clear Calc 125.2 Estimated GFR > 60 POC Glucose 99 91 Random Glucose 97 Calcium 9.0 Total Bilirubin 3.3 H Direct Bilirubin 1.8 H AST 42 H ALT 16 Alkaline Phosphatase 69 Troponin I High Sens Total Protein 8.7 H Albumin 3.8 Assessment and Plan (1) Alcohol use disorder: Status: Acute (2) Cirrhosis: Status: Acute (3) Abnormal EKG: Status: Acute Plan 36-year-old gentleman who has been drinking alcohol from age 12 and has documented cirrhosis of liver unfortunately. He is presenting for edema and abnormal EKG. His EKG showing anterior T-wave inversions. Differentials of these changes are many including pulmonary embolism which has been ruled out with CT PA, anterior ischemia from LAD plaque rupture which he is not acting like or has symptoms for and sometimes intracranial pathology/bleeding which again he does not appears to have any obvious symptoms/signs of. There was some concern about right ventricular dysfunction on his echocardiogram at [facility]. We need to review that. I think we should repeat echocardiography on him tomorrow. If he has portal hypertension then he can develop pulmonary hypertension to which can lead to RV dysfunction as well as EKG changes similar to what we see right now. Interestingly he has coronary calcifications noticed on his CT scan incidentally. Cannot get statins because of alcoholism and cirrhosis of currently. If no bleeding concerns and can not get baby aspirin for now. Agree with gentle diuretics for now. Thank you for allowing me to participate in the care of your patient. Please feel free to contact me if you have any questions. Procedures Date of Service Date of Service: 11/03/22
--- NOTE | 2022-11-03 12:42 | P.CNGI_ITS ---
History of Present Illness Data of Consult Service Date: 11/03/22 Requesting physician: Korina Riggs Primary Care Provider: Unknown Physician HPI Reason for consult: Liver cirrhosis 36 year old Scottish-speaking male with history of ETOH abuse complicated by ESLD, CHF, [id number] diabetes mellitus seen at [facility] on 11/02/22 with fatigue, abdominal swelling and lower extremity edema.? Patient complained of pain all over including chest pain and abdominal pain.? Patient stated he is not doing well since .? Hx obtained with the help of [facility] [employer]. Pt was diagnosed with liver problems in . He admits to a hx of ETOH abuse since he was [age] yrs old. Pt reports being sober for the past 3 months and started binge drinking since .? Pt stated, he has been drinking a lot of beer, whiskey and Tequila daily and barely been eating or sleeping.? Last drink was on 11/02/22.? States he feels unwell.? Had episodes of sweating and nausea earlier.? Patient has also stopped taking his p.o. medications since .? Has not taken his Lasix or spironolactone over the last 1 week.? Patient has noted lower extremity edema for the past 3 months, he was previously admitted at [facility] where he was significantly diuresed.? States he has noticed significant swelling in his bilateral lower extremities.? Also has abdominal swelling but no pain.? No fever, chills, palpitations, changes in urinary habits Pt denies symptoms of heartburn, dysphagia, diarrhea, constipation or recent change in bowel habits. Patient denies black stools or rectal bleeding. Patient denies smoking, IV drug abuse or smoking marijuana He has 2 children. Labs showed H&H of 9.1 and 27.3, platelets 102, INR 1.5, BUN 37 creatinine 1.23. LFTs showed total bilirubin of 2.7, AST 38, ALT 17, albumin 4.2, lipase 94 Pt was admitted and started on CIWA protocol. Repeat LFTs today showed slight worsening with increase in TB to 3.3 11/02/[address] SCAN SHOWED: 1.? While no central or lobar pulmonary embolus is seen, evaluation of the segmental and subsegmental vessels is limited due to bolus timing, and emboli at these levels cannot be entirely excluded. 2.? Cirrhotic morphology of the liver with sequela of portal hypertension including splenomegaly, varices, and mild ascites. 3.? Trace left pleural effusion. 4.? Coronary artery calcifications. Correlation with cardiac risk factors is recommended. Review of Systems Constitutional: Constitutional: Reports fatigue, Reports lethargy, Reports malaise and Reports weakness Cardiovascular: Cardiovascular: Reports no additional cardiovascular complaints Respiratory: Respiratory: Reports no additional respiratory complaints Gastrointestinal: Gastrointestinal: Reports bloating Genitourinary: Genitourinary: Reports no additional male genitourinary complaints Neurologic: Reports weakness Psychiatric: Psychiatric: Reports depression Endocrine: Endocrine: Reports fatigue [facility] Past Medical History Medical History Alcohol use disorder Cirrhosis Congestive heart failure Depression Non-insulin dependent type 2 diabetes mellitus Social History Social History Household Members: Spouse Housing: House Do you presently have visiting nurse or other home services: No Alcohol intake: current Alcohol intake frequency: a few times a week Alcohol type: beer and hard liquor Patient Tobacco Use Status: Never used Tobacco Advance Directives Date on File: 11/02/22 Meds Allergies Allergy/AdvReac Type Severity Reaction Status Date / Time No Known Allergies Allergy Verified 11/01/22 23:33 Active Medications: Current Medications Acetaminophen (Acetaminophen 325 Mg Tablet) 650 mg PO Q6H PRN PRN Reason: Pain, Mild (Pain Scale 1-3) Dextrose (Dextrose 50 % 25 Gm/50 Ml Syringe) 25 gm IVPUSH Q15M PRN; Protocol PRN Reason: per Hypoglycemia Standing Ord. Escitalopram Oxalate (Escitalopram Oxalate 10 Mg Tablet) 10 mg PO DAILY [facility] Last Admin: 11/03/22 07:52 Dose: 10 mg Folic Acid (Folic Acid 1 Mg Tablet) 1 mg PO DAILY [facility] Last Admin: 11/03/22 07:52 Dose: 1 mg Furosemide (Furosemide 20 Mg/2 Ml Vial) 20 mg IVPUSH DAILY [facility]; Protocol Last Admin: 11/03/22 07:51 Dose: 20 mg Glucose (Glucose Gel 15 Gm Gel..Gram.) 15 gm PO Q15M PRN; Protocol PRN Reason: per Hypoglycemia Standing Ord. Insulin Human Lispro (Insulin Lispro 100 Unit/Ml 3 Ml Vial) 0 unit SUBCUT QIDACHS [facility]; Protocol Last Admin: 11/03/22 11:29 Dose: Not Given Lactulose (Lactulose 20 Gm/30 Ml Solution) 20 gm PO BID [facility] Melatonin (Melatonin 3 Mg Tablet) 6 mg PO BEDTIME PRN PRN Reason: Insomnia Ondansetron HCl (Ondansetron Hcl 4 Mg/2 Ml Vial) 4 mg IVPUSH Q8H PRN PRN Reason: Nausea and Vomiting Pharmacy Consult (Consult Rx Perform Med Rec) 1 each MISCELLANE ONCE PRN PRN Reason: Consult order Pharmacy Consult (Consult Rx Etoh Phenob Im/Po) 1 each MISCELLANE ONCE PRN; Pro tocol PRN Reason: Consult order Phenobarbital (Phenobarbital 30 Mg Tablet) 60 mg PO BID [facility]; Protocol Stop: 11/04/22 21:01 Last Admin: 11/03/22 07:52 Dose: 60 mg Phenobarbital (Phenobarbital 30 Mg Tablet) 30 mg PO BID [facility]; Protocol Stop: 11/06/22 21:01 Phenobarbital (Phenobarbital 30 Mg Tablet) 30 mg PO DAILY [facility]; Protocol Stop: 11/08/22 09:01 Sodium Chloride (0.9 % Sodium Chloride Flush 3 Ml Syringe) 3 ml [facility]USH [facility] Last Admin: 11/03/22 07:52 Dose: 3 ml Spironolactone (Spironolactone 25 Mg Tablet) 50 mg PO DAILY [facility]; Protocol Last Admin: 11/03/22 07:52 Dose: 50 mg Thiamine HCl (Thiamine Hcl 100 Mg Tablet) 100 mg PO DAILY [facility] Last Admin: 11/03/22 07:52 Dose: 100 mg Home Medications Medication Instructions Recorded Confirmed Last Taken Type furosemide 80 mg tablet 1 tab PO DAILY 11/02/22 11/02/22 Unknown History metformin 500 mg tablet 1 tab PO BID 11/02/22 11/02/22 Unknown History metoprolol succinate 25 mg 1 tab PO DAILY 11/02/22 11/02/22 Unknown History tablet,extended release 24 hr spironolactone 50 mg tablet 1 tab PO DAILY 11/02/22 11/02/22 Unknown History Physical Exam Vital Signs: Vital Signs: Last Vital Signs Temp 98.3 F 11/03/22 07:39 Pulse 99 11/03/22 07:39 Resp 20 11/03/22 07:39 BP 115/70 11/03/22 07:39 Pulse Ox 97 11/03/22 07:39 O2 Del Method 11/03/22 07:39 O2 Flow Rate 4 11/03/22 07:39 BMI result Body Mass Index 44.5 Const: General: no acute distress Nutritional Appearance: obese (Morbidly obese) Orientation/consciousness: patient oriented x3 Limitations: language barrier HEENT: Head: Yes normal to inspection Ears: hearing grossly normal noreen aterally Eyes: Sclerae: sclerae normal Pupils: Equal, round and reactive pupils present Neck: Neck: Yes normal visual inspection Chest: Chest palpation & inspection: normal inspection of the chest Resp: Effort & Inspection: normal respiratory effort Auscultation: clear to auscultation bilaterally Cardio: Palpation: normal PMI Rate: regular rate Rhythm: regular rhythm Heart sounds: S1 normal heart sound present, S2 normal heart sound present and no murmurs GI: Inspection: Yes obesity Palpation (GI): Soft to palpation, nontender and No hepatosplenomegaly present Auscultation: normal bowel sounds Rectal Exam - Male: Yes deferred Skin: General skin exam: no rashes or lesions noted and spider nevi (On anterior chest) Neuro: General: patient oriented x3, gait normal and moves all extremities Cranial nerves: Yes Equal, round and reactive pupils present Extrem: General: Yes pedal edema (2-3 +) Psych: Appearance: grossly normal Mental Status: mental status grossly normal Results Labs 11/05/22 05:24 11/05/22 05:24 Labs: Short CBC 11/03/22 Range/Units 05:23 WBC 3.6 L (4.8-10.8) X10*3/uL Hgb 8.4 L (14.0-18.0) g/dl Hct 24.9 L (42.0-52.0) % Plt Count 92 L (160-400) X10*3/uL BMP 11/03/22 05:23 Sodium 130 L Potassium 4.3 Chloride 96 Carbon Dioxide 21 L BUN 25 H Creatinine 1.12 Calcium 9.0 Liver Function 11/03/22 Range/Units 05:23 Total Bilirubin 3.3 H (0.0-1.0) mg/dL Direct Bilirubin 1.8 H (0.0-0.5) mg/dL AST 42 H (5-37) U/L ALT 16 (0-40) U/L Alkaline Phosphatase 69 (39-117) U/L Albumin 3.8 (3.5-5.0) g/dL Assessment and Plan (1) Alcohol use disorder: Status: Inactive (2) Cirrhosis: Status: Inactive Plan 36 year old Scottish-speaking male with history of ETOH abuse complicated by ESLD, CHF, [id number] diabetes mellitus admitted to [facility] on 11/02/22 with fatigue, abdominal swelling and lower extremity edema.? Pt was diagnosed with liver problems in and admits to a hx of ETOH abuse since he was [age] yrs old. Pt reports being sober for the past 3 months and started binge drinking since .? Patient has also stopped taking his p.o. medications since .? Labs showed H&H of 9.1 and 27.3, platelets 102, INR 1.5, BUN 37 creatinine 1.23. LFTs showed total bilirubin of 2.7, AST 38, ALT 17, albumin 4.2, lipase 94 11/02/[address] SCAN SHOWED: 1.? While no central or lobar pulmonary embolus is seen, evaluation of the segmental and subsegmental vessels is limited due to bolus timing, and emboli at these levels cannot be entirely excluded. 2.? Cirrhotic morphology of the liver with sequela of portal hypertension including splenomegaly, varices, and mild ascites. 3.? Trace left pleural effusion. 4.? Coronary artery calcifications. Correlation with cardiac risk factors is recommended. RECOMMENDATIONS: 1. Agree with CIWA protocol. 2 Continue Lactulose and diuresis with furosemide and spironolactone. Dose of diuretic can be increased in the am to Furosemide 40 mg and spironolactone 100 mg while monitoring BP and renal function. 3. Check daily weights 4. Check Hepatitis B and C serologies - added to am labs. 5. Need to obtain Medical Records from [facility] - I have requested the community artist to get the records. Procedures Date of Service Date of Service: 11/03/22
[2022-11-03 15:17] VITALS: BP 117/57; PULSE 99; RESP 18; TEMP 37.4; O2SAT 96
[2022-11-03 16:12] LABS: Glucose, Whole Blood 153 mg/dL (60-115)
--- NOTE | 2022-11-03 19:28 | HO.ADDICT_ITS ---
History of Present Illness Date of Service: 11/03/2022 Chief Complaint: Leg swelling, anterior T wave inversions Reason for Consult: alcohol use disorder HPI Narrative: Patient is a 36 year old Romanian speaking male currently medically admitted with CHF and alcohol withdrawal. Patient seen in room 347. Awake, alert, pleasant and engaged in interview. Somewhat guarded and avoidant when answering questions related to alcohol use. Initially denied having any issues with alcohol, later confirmed that at one time he was drinking too much . He states that he had not had any alcohol for a few months then drank on and for 6 days following. Difficulty seeing correlation between alcohol use and current/worsening medical issues. Denies any history of treatment. Declined discussion related to options for alcohol use--medications, education, etc. Patient stated several times, this is it, now I know I can't drink anymore, so I am not going to Past Psychiatric History: -Denies Review of Systems Constitutional: Reports as per HPI Diagnostics Vital Signs (24Hr): Vital Signs - 24 hr 11/02/22 20:40 11/02/22 22:36 11/03/22 04:00 Temperature 99.5 F 98.9 F 99.1 F Pulse Rate 106 H 106 H 97 Respiratory Rate 20 20 18 Blood Pressure 114/64 117/70 117/63 Pulse Oximetry 92 95 96 Oxygen Delivery Method Room Air Nasal Cannula Nasal Cannula Oxygen Flow Rate 4.0 4 11/03/22 07:39 11/03/22 15:17 Temperature 98.3 F 99.3 F Pulse Rate 99 99 Respiratory Rate 20 18 Blood Pressure 115/70 117/57 L Pulse Oximetry 97 96 Oxygen Delivery Method Nasal Cannula Nasal Cannula Oxygen Flow Rate 4 4.0 BMI result Body Mass Index 44.5 Labs Results: 11/03/22 05:23 11/03/22 05:23 Labs: Laboratory Results - last 48 hr 11/01/22 11/01/22 11/01/22 23:45 23:45 23:45 WBC 4.5 L RBC 3.55 L Hgb 9.1 L Hct 27.3 L MCV 76.9 L MCH 25.6 L MCHC 33.3 RDW 18.2 H Plt Count 102 L MPV 9.2 L Immature Gran % (Auto) 0.4 Neut % (Auto) 81.7 H Lymph % (Auto) 9.2 L [place] % (Auto) 8.3 Eos % (Auto) 0.2 Baso % (Auto) 0.2 Lymph # (Auto) 0.4 L [place] # (Auto) 0.4 Eos # (Auto) 0.0 Baso # (Auto) 0.0 Abs Immat Gran (auto) 0.02 Absolute Neuts (auto) 3.7 Absolute Nucleated RBC 0.000 Nucleated RBC % (auto) 0.0 PT INR D-Dimer High Sensitivty O2 Saturation ABG pH at Pt Temp ABG pCO2 at Pt Temp ABG pO2 at Pt Temp ABG HCO3 ABG Base Excess (Actual) Sodium 126 L Potassium 4.7 Chloride 91 L Carbon Dioxide 18 L Anion Gap 22 H BUN 42 H Creatinine 1.41 H Estim Creat Clear Calc 102.2 Estimated GFR 57 POC Glucose Random Glucose 114 Osmolality Lactic Acid Lactic Acid F/U @ 2Hr Calcium 8.7 Magnesium Iron TIBC % Saturation Unsat Iron Binding Total Bilirubin 2.7 H Direct Bilirubin 1.6 H AST 38 H ALT 17 Alkaline Phosphatase 80 Troponin I High Sens 43.6 H B-Natriuretic Peptide Total Protein 9.5 H Albumin 4.2 Lipase 94 H Folate Urine Osmolality Ur Random Sodium Ethyl Alcohol 132 Acetone, Qual Influenza Type A (PCR) Influenza Type B (PCR) RSV RNA Qual (PCR) SARS-CoV-2 RNA (RT-PCR) 11/01/22 11/02/22 11/02/22 23:45 00:59 01:03 WBC RBC Hgb Hct MCV MCH MCHC RDW Plt Count MPV Immature Gran % (Auto) Neut % (Auto) Lymph % (Auto) [place] % (Auto) Eos % (Auto) Baso % (Auto) Lymph # (Auto) [place] # (Auto) Eos # (Auto) Baso # (Auto) Abs Immat Gran (auto) Absolute Neuts (auto) Absolute Nucleated RBC Nucleated RBC % (auto) PT INR D-Dimer High Sensitivty O2 Saturation 94.0 ABG pH at Pt Temp 7.51 H ABG pCO2 at Pt Temp 20 L* ABG pO2 at Pt Temp 72 L ABG HCO3 16 L ABG Base Excess (Actual) -4.1 Sodium Potassium Chloride Carbon Dioxide Anion Gap BUN Creatinine Estim Creat Clear Calc Estimated GFR POC Glucose Random Glucose Osmolality Lactic Acid Lactic Acid F/U @ 2Hr Calcium Magnesium Iron TIBC % Saturation Unsat Iron Binding Total Bilirubin Direct Bilirubin AST ALT Alkaline Phosphatase Troponin I High Sens B-Natriuretic Peptide 903 H Total Protein Albumin Lipase Folate Urine Osmolality Ur Random Sodium Ethyl Alcohol Acetone, Qual Influenza Type A (PCR) NEGATIVE Influenza Type B (PCR) NEGATIVE RSV RNA Qual (PCR) NEGATIVE SARS-CoV-2 RNA (RT-PCR) NEGATIVE 11/02/22 11/02/22 11/02/22 01:19 01:19 03:53 WBC RBC Hgb Hct MCV MCH MCHC RDW Plt Count MPV Immature Gran % (Auto) Neut % (Auto) Lymph % (Auto) [place] % (Auto) Eos % (Auto) Baso % (Auto) Lymph # (Auto) [place] # (Auto) Eos # (Auto) Baso # (Auto) Abs Immat Gran (auto) Absolute Neuts (auto) Absolute Nucleated RBC Nucleated RBC % (auto) PT INR D-Dimer High Sensitivty O2 Saturation ABG pH at Pt Temp ABG pCO2 at Pt Temp ABG pO2 at Pt Temp ABG HCO3 ABG Base Excess (Actual) Sodium Potassium Chloride Carbon Dioxide Anion Gap BUN Creatinine Estim Creat Clear Calc Estimated GFR POC Glucose Random Glucose Osmolality Lactic Acid 2.1 H* Lactic Acid F/U @ 2Hr Calcium Magnesium Iron TIBC % Saturation Unsat Iron Binding Total Bilirubin Direct Bilirubin AST ALT Alkaline Phosphatase Troponin I High Sens 45.2 H B-Natriuretic Peptide Total Protein Albumin Lipase Folate Urine Osmolality Ur Random Sodium Ethyl Alcohol Acetone, Qual Negative Influenza Type A (PCR) Influenza Type B (PCR) RSV RNA Qual (PCR) SARS-CoV-2 RNA (RT-PCR) 11/02/22 11/02/22 11/02/22 03:53 04:31 04:31 WBC RBC Hgb Hct MCV MCH MCHC RDW Plt Count MPV Immature Gran % (Auto) Neut % (Auto) Lymph % (Auto) [place] % (Auto) Eos % (Auto) Baso % (Auto) Lymph # (Auto) [place] # (Auto) Eos # (Auto) Baso # (Auto) Abs Immat Gran (auto) Absolute Neuts (auto) Absolute Nucleated RBC Nucleated RBC % (auto) PT INR D-Dimer High Sensitivty O2 Saturation ABG pH at Pt Temp ABG pCO2 at Pt Temp ABG pO2 at Pt Temp ABG HCO3 ABG Base Excess (Actual) Sodium Potassium Chloride Carbon Dioxide Anion Gap BUN Creatinine Estim Creat Clear Calc Estimated GFR POC Glucose Random Glucose Osmolality Lactic Acid Lactic Acid F/U @ 2Hr 2.0 Calcium Magnesium Iron TIBC % Saturation Unsat Iron Binding Total Bilirubin Direct Bilirubin AST ALT Alkaline Phosphatase Troponin I High Sens B-Natriuretic Peptide Total Protein Albumin Lipase Folate Urine Osmolality 232 L Ur Random Sodium 30.0 Ethyl Alcohol Acetone, Qual Influenza Type A (PCR) Influenza Type B (PCR) RSV RNA Qual (PCR) SARS-CoV-2 RNA (RT-PCR) 11/02/22 11/02/22 11/02/22 04:43 04:43 05:46 WBC RBC Hgb Hct MCV MCH MCHC RDW Plt Count MPV Immature Gran % (Auto) Neut % (Auto) Lymph % (Auto) [place] % (Auto) Eos % (Auto) Baso % (Auto) Lymph # (Auto) [place] # (Auto) Eos # (Auto) Baso # (Auto) Abs Immat Gran (auto) Absolute Neuts (auto) Absolute Nucleated RBC Nucleated RBC % (auto) PT 17.1 H INR 1.5 H D-Dimer High Sensitivty O2 Saturation ABG pH at Pt Temp ABG pCO2 at Pt Temp ABG pO2 at Pt Temp ABG HCO3 ABG Base Excess (Actual) Sodium Potassium Chloride Carbon Dioxide Anion Gap BUN Creatinine Estim Creat Clear Calc Estimated GFR POC Glucose Random Glucose Osmolality 307 H Lactic Acid Lactic Acid F/U @ 2Hr Calcium Magnesium 2.4 Iron TIBC % Saturation Unsat Iron Binding Total Bilirubin Direct Bilirubin AST ALT Alkaline Phosphatase Troponin I High Sens B-Natriuretic Peptide Total Protein Albumin Lipase Folate Urine Osmolality Ur Random Sodium Ethyl Alcohol Acetone, Qual Influenza Type A (PCR) Influenza Type B (PCR) RSV RNA Qual (PCR) SARS-CoV-2 RNA (RT-PCR) 11/02/22 11/02/22 11/02/22 05:46 05:46 05:46 WBC 3.5 L RBC 3.45 L Hgb 9.0 L Hct 26.7 L MCV 77.4 L MCH 26.1 L MCHC 33.7 RDW 18.5 H Plt Count 106 L MPV 9.4 Immature Gran % (Auto) 0.6 H Neut % (Auto) 73.9 H Lymph % (Auto) 15.6 L [place] % (Auto) 8.2 Eos % (Auto) 1.1 Baso % (Auto) 0.6 Lymph # (Auto) 0.6 L [place] # (Auto) 0.3 Eos # (Auto) 0.0 Baso # (Auto) 0.0 Abs Immat Gran (auto) 0.02 Absolute Neuts (auto) 2.6 Absolute Nucleated RBC 0.000 Nucleated RBC % (auto) 0.0 PT INR D-Dimer High Sensitivty O2 Saturation ABG pH at Pt Temp ABG pCO2 at Pt Temp ABG pO2 at Pt Temp ABG HCO3 ABG Base Excess (Actual) Sodium 126 L Potassium 4.6 Chloride 94 L Carbon Dioxide 18 L Anion Gap 19 BUN 37 H Creatinine 1.23 Estim Creat Clear Calc 117.2 Estimated GFR > 60 POC Glucose Random Glucose 85 Osmolality Lactic Acid Lactic Acid F/U @ 2Hr Calcium 8.7 Magnesium Iron 105 TIBC 467 H % Saturation 22 Unsat Iron Binding 362 Total Bilirubin Direct Bilirubin AST ALT Alkaline Phosphatase Troponin I High Sens B-Natriuretic Peptide Total Protein Albumin Lipase Folate Urine Osmolality Ur Random Sodium Ethyl Alcohol Acetone, Qual Influenza Type A (PCR) Influenza Type B (PCR) RSV RNA Qual (PCR) SARS-CoV-2 RNA (RT-PCR) 11/02/22 11/02/22 11/02/22 05:46 07:08 11:41 WBC RBC Hgb Hct MCV MCH MCHC RDW Plt Count MPV Immature Gran % (Auto) Neut % (Auto) Lymph % (Auto) [place] % (Auto) Eos % (Auto) Baso % (Auto) Lymph # (Auto) [place] # (Auto) Eos # (Auto) Baso # (Auto) Abs Immat Gran (auto) Absolute Neuts (auto) Absolute Nucleated RBC Nucleated RBC % (auto) PT INR D-Dimer High Sensitivty O2 Saturation ABG pH at Pt Temp ABG pCO2 at Pt Temp ABG pO2 at Pt Temp ABG HCO3 ABG Base Excess (Actual) Sodium Potassium Chloride Carbon Dioxide Anion Gap BUN Creatinine Estim Creat Clear Calc Estimated GFR POC Glucose 97 116 H Random Glucose Osmolality Lactic Acid Lactic Acid F/U @ 2Hr Calcium Magnesium Iron TIBC % Saturation Unsat Iron Binding Total Bilirubin Direct Bilirubin AST ALT Alkaline Phosphatase Troponin I High Sens B-Natriuretic Peptide Total Protein Albumin Lipase Folate 9.4 Urine Osmolality Ur Random Sodium Ethyl Alcohol Acetone, Qual Influenza Type A (PCR) Influenza Type B (PCR) RSV RNA Qual (PCR) SARS-CoV-2 RNA (RT-PCR) 11/02/22 11/02/22 11/02/22 12:00 13:16 13:16 WBC RBC Hgb Hct MCV MCH MCHC RDW Plt Count MPV Immature Gran % (Auto) Neut % (Auto) Lymph % (Auto) [place] % (Auto) Eos % (Auto) Baso % (Auto) Lymph # (Auto) [place] # (Auto) Eos # (Auto) Baso # (Auto) Abs Immat Gran (auto) Absolute Neuts (auto) Absolute Nucleated RBC Nucleated RBC % (auto) PT INR D-Dimer High Sensitivty 1070 O2 Saturation ABG pH at Pt Temp ABG pCO2 at Pt Temp ABG pO2 at Pt Temp ABG HCO3 ABG Base Excess (Actual) Sodium Potassium Chloride Carbon Dioxide Anion Gap BUN Creatinine Estim Creat Clear Calc Estimated GFR POC Glucose 119 H Random Glucose Osmolality Lactic Acid Lactic Acid F/U @ 2Hr Calcium Magnesium Iron TIBC % Saturation Unsat Iron Binding Total Bilirubin Direct Bilirubin AST ALT Alkaline Phosphatase Troponin I High Sens 22.8 B-Natriuretic Peptide Total Protein Albumin Lipase Folate Urine Osmolality Ur Random Sodium Ethyl Alcohol Acetone, Qual Influenza Type A (PCR) Influenza Type B (PCR) RSV RNA Qual (PCR) SARS-CoV-2 RNA (RT-PCR) 11/02/22 11/02/22 11/03/22 17:22 22:40 05:23 WBC 3.6 L RBC 3.18 L Hgb 8.4 L Hct 24.9 L MCV 78.3 L MCH 26.4 L MCHC 33.7 RDW 19.0 H Plt Count 92 L MPV 9.2 L Immature Gran % (Auto) Neut % (Auto) Lymph % (Auto) [place] % (Auto) Eos % (Auto) Baso % (Auto) Lymph # (Auto) [place] # (Auto) Eos # (Auto) Baso # (Auto) Abs Immat Gran (auto) Absolute Neuts (auto) Absolute Nucleated RBC 0.000 Nucleated RBC % (auto) 0.0 PT INR D-Dimer High Sensitivty O2 Saturation ABG pH at Pt Temp ABG pCO2 at Pt Temp ABG pO2 at Pt Temp ABG HCO3 ABG Base Excess (Actual) Sodium Potassium Chloride Carbon Dioxide Anion Gap BUN Creatinine Estim Creat Clear Calc Estimated GFR POC Glucose 119 H 125 H Random Glucose Osmolality Lactic Acid Lactic Acid F/U @ 2Hr Calcium Magnesium Iron TIBC % Saturation Unsat Iron Binding Total Bilirubin Direct Bilirubin AST ALT Alkaline Phosphatase Troponin I High Sens B-Natriuretic Peptide Total Protein Albumin Lipase Folate Urine Osmolality Ur Random Sodium Ethyl Alcohol Acetone, Qual Influenza Type A (PCR) Influenza Type B (PCR) RSV RNA Qual (PCR) SARS-CoV-2 RNA (RT-PCR) 11/03/22 11/03/22 11/03/22 05:23 07:26 11:16 WBC RBC Hgb Hct MCV MCH MCHC RDW Plt Count MPV Immature Gran % (Auto) Neut % (Auto) Lymph % (Auto) [place] % (Auto) Eos % (Auto) Baso % (Auto) Lymph # (Auto) [place] # (Auto) Eos # (Auto) Baso # (Auto) Abs Immat Gran (auto) Absolute Neuts (auto) Absolute Nucleated RBC Nucleated RBC % (auto) PT INR D-Dimer High Sensitivty O2 Saturation ABG pH at Pt Temp ABG pCO2 at Pt Temp ABG pO2 at Pt Temp ABG HCO3 ABG Base Excess (Actual) Sodium 130 L Potassium 4.3 Chloride 96 Carbon Dioxide 21 L Anion Gap 17 BUN 25 H Creatinine 1.12 Estim Creat Clear Calc 125.2 Estimated GFR > 60 POC Glucose 99 91 Random Glucose 97 Osmolality Lactic Acid Lactic Acid F/U @ 2Hr Calcium 9.0 Magnesium Iron TIBC % Saturation Unsat Iron Binding Total Bilirubin 3.3 H Direct Bilirubin 1.8 H AST 42 H ALT 16 Alkaline Phosphatase 69 Troponin I High Sens B-Natriuretic Peptide Total Protein 8.7 H Albumin 3.8 Lipase Folate Urine Osmolality Ur Random Sodium Ethyl Alcohol Acetone, Qual Influenza Type A (PCR) Influenza Type B (PCR) RSV RNA Qual (PCR) SARS-CoV-2 RNA (RT-PCR) 11/03/22 15:20 WBC RBC Hgb Hct MCV MCH MCHC RDW Plt Count MPV Immature Gran % (Auto) Neut % (Auto) Lymph % (Auto) [place] % (Auto) Eos % (Auto) Baso % (Auto) Lymph # (Auto) [place] # (Auto) Eos # (Auto) Baso # (Auto) Abs Immat Gran (auto) Absolute Neuts (auto) Absolute Nucleated RBC Nucleated RBC % (auto) PT INR D-Dimer High Sensitivty O2 Saturation ABG pH at Pt Temp ABG pCO2 at Pt Temp ABG pO2 at Pt Temp ABG HCO3 ABG Base Excess (Actual) Sodium Potassium Chloride Carbon Dioxide Anion Gap BUN Creatinine Estim Creat Clear Calc Estimated GFR POC Glucose 153 H Random Glucose Osmolality Lactic Acid Lactic Acid F/U @ 2Hr Calcium Magnesium Iron TIBC % Saturation Unsat Iron Binding Total Bilirubin Direct Bilirubin AST ALT Alkaline Phosphatase Troponin I High Sens B-Natriuretic Peptide Total Protein Albumin Lipase Folate Urine Osmolality Ur Random Sodium Ethyl Alcohol Acetone, Qual Influenza Type A (PCR) Influenza Type B (PCR) RSV RNA Qual (PCR) SARS-CoV-2 RNA (RT-PCR) Imaging Radiology Impressions: ITS Impressions Chest X-Ray 11/02/22 00:25 IMPRESSION: No acute pulmonary findings. Borderline enlarged cardiac silhouette. Abdomen/Pelvis CT 11/02/22 02:20 IMPRESSION: 1. While no central or lobar pulmonary embolus is seen, evaluation of the segmental and subsegmental vessels is limited due to bolus timing, and emboli at these levels cannot be entirely excluded. 2. Cirrhotic morphology of the liver with sequela of portal hypertension including splenomegaly, varices, and mild ascites. 3. Trace left pleural effusion. 4. Coronary artery calcifications. Correlation with cardiac risk factors is recommended. Chest CTA 11/02/22 02:22 IMPRESSION: 1. While no central or lobar pulmonary embolus is seen, evaluation of the segmental and subsegmental vessels is limited due to bolus timing, and emboli at these levels cannot be entirely excluded. 2. Cirrhotic morphology of the liver with sequela of portal hypertension including splenomegaly, varices, and mild ascites. 3. Trace left pleural effusion. 4. Coronary artery calcifications. Correlation with cardiac risk factors is recommended. Mental Status Exam Mental Status Exam Patient Appearance: Appropriate Level of Consciousness: Awake, Appropriate and Alert Patient Behavior: Guarded Speech Pattern: Clear Judgement: Fair Medications Medications Current Medications Acetaminophen (Acetaminophen 325 Mg Tablet) 650 mg PO Q6H PRN PRN Reason: Pain, Mild (Pain Scale 1-3) Dextrose (Dextrose 50 % 25 Gm/50 Ml Syringe) 25 gm IVPUSH Q15M PRN; Protocol PRN Reason: per Hypoglycemia Standing Ord. Escitalopram Oxalate (Escitalopram Oxalate 10 Mg Tablet) 10 mg PO DAILY [facility] Last Admin: 11/03/22 07:52 Dose: 10 mg Folic Acid (Folic Acid 1 Mg Tablet) 1 mg PO DAILY [facility] Last Admin: 11/03/22 07:52 Dose: 1 mg Furosemide (Furosemide 20 Mg/2 Ml Vial) 20 mg IVPUSH DAILY [facility]; Protocol Last Admin: 11/03/22 07:51 Dose: 20 mg Glucose (Glucose Gel 15 Gm Gel..Gram.) 15 gm PO Q15M PRN; Protocol PRN Reason: per Hypoglycemia Standing Ord. Insulin Human Lispro (Insulin Lispro 100 Unit/Ml 3 Ml Vial) 0 unit SUBCUT QIDACHS [facility]; Protocol Last Admin: 11/03/22 17:38 Dose: Not Given Lactulose (Lactulose 20 Gm/30 Ml Solution) 20 gm PO BID [facility] Melatonin (Melatonin 3 Mg Tablet) 6 mg PO BEDTIME PRN PRN Reason: Insomnia Ondansetron HCl (Ondansetron Hcl 4 Mg/2 Ml Vial) 4 mg IVPUSH Q8H PRN PRN Reason: Nausea and Vomiting Pharmacy Consult (Consult Rx Perform Med Rec) 1 each MISCELLANE ONCE PRN PRN Reason: Consult order Pharmacy Consult (Consult Rx Etoh Phenob Im/Po) 1 each MISCELLANE ONCE PRN; Protocol PRN Reason: Consult order Phenobarbital (Phenobarbital 30 Mg Tablet) 60 mg PO BID [facility]; Protocol Stop: 11/04/22 21:01 Last Admin: 11/03/22 07:52 Dose: 60 mg Phenobarbital (Phenobarbital 30 Mg Tablet) 30 mg PO BID [facility]; Protocol Stop: 11/06/22 21:01 Phenobarbital (Phenobarbital 30 Mg Tablet) 30 mg PO DAILY [facility]; Protocol Stop: 11/08/22 09:01 Sodium Chloride (0.9 % Sodium Chloride Flush 3 Ml Syringe) 3 ml IVFLUSH QSHIFT [facility] Last Admin: 11/03/22 17:36 Dose: 3 ml Spironolactone (Spironolactone 25 Mg Tablet) 50 mg PO DAILY [facility]; Protocol Last Admin: 11/03/22 07:52 Dose: 50 mg Thiamine HCl (Thiamine Hcl 100 Mg Tablet) 100 mg PO DAILY [facility] Last Admin: 11/03/22 07:52 Dose: 100 mg Allergies Allergies Allergy/AdvReac Type Severity Reaction Status Date / Time No Known Allergies Allergy Verified 11/01/22 23:33 Assessment & Plan Assessment & Plan (1) Alcohol use disorder: Status: Acute Code(s): F19.90 - Other psychoactive substance use, unspecified, uncomplicated Assessment and Plan: * patient open to information about medications at the end of the visit--RSRN to follow up and provide information for patient to review * Patient appears to be in precontemplation stage--as such, limited follow up inidicated at this time. I spent __40____ minutes with the patient and/or on the patient floor today, greater than?50% of which was spent counseling/coordinating care. PMFSH Past Medical History Medical History Alcohol use disorder Cirrhosis Congestive heart failure Depression Non-insulin dependent type 2 diabetes mellitus Social History Social History Household Members: Spouse Housing: House Do you presently have visiting nurse or other home services: No Alcohol intake: current Alcohol intake frequency: a few times a week Alcohol type: beer and hard liquor Patient Tobacco Use Status: Never used Tobacco Advance Directives Date on File: 11/02/22
[2022-11-03 19:38] VITALS: BP 128/81; PULSE 100; RESP 18; TEMP 37.3; O2SAT 90
[2022-11-03 19:47] LABS: Glucose, Whole Blood 117 mg/dL (60-115)
[2022-11-04 03:34] VITALS: BP 126/70; PULSE 98; RESP 20; TEMP 36.6; O2SAT 94
[2022-11-04 06:43] LABS: Hematocrit 26.6 % (42.0-52.0); Hemoglobin 8.5 g/dl (14.0-18.0); Mean Corpuscular Hemoglobin 25.9 pg (27.0-33.0); Mean Corpuscular Volume 81.1 fL (80.0-98.0); Mean Platelet Volume 9.8 fL (9.4-12.4); Red Blood Count 3.28 X10*6/uL (4.60-5.80); Red Cell Distribution Width 19.7 % (11.0-16.0); White Blood Count 4.1 X10*3/uL (4.8-10.8)
[2022-11-04 06:47] LABS: Platelet Count 99 X10*3/uL (160-400)
--- NOTE | 2022-11-04 07:00 | CA_ITS ---
Transthoracic Echocardiogram Patient (Last, First, Middle): Heriberto Buenrostro, Gender: Male Date of : 1985 Age: 36 Procedure Date: 11/04/2022 Procedure Type: Transthoracic Echocardiogram Location: S3E Height: 175.26 cm Weight: 136.53 kg BSA: 2.46 m2 Heart Rate: 94 bpm BP: 126 / 70 mmHg Statistical Methods Professor: CAITLIN Referring MD: Génesis Garcia MD Silo Tender: Carlos Berkowitz MD Symptoms: CHF Study Quality: Adequate w contrast ECG Rhythm: Sinus Conclusions: - 1. Normal LV systolic function 2. Moderately dilated right ventricle with [id number] systolic dysfunction next 3. Normal cardiac valvular Doppler 4. Upper limits of normal RV systolic pressure with significantly elevated right atrial pressures 5. Small loculated pericardial effusion near the right atrium Findings Procedure Information Contrast agent, definity, is being given per protocol without apparent complications. Left Ventricle Normal left ventricular size, thickness, and systolic function. The visually estimated ejection fraction is between 55-60%. There is a flattened septum in systole consistent with right ventricular pressure overload. Spectral Doppler is indicative of a normal filling pattern. Right Ventricle Moderately increased right ventricular cavity size. There is mild to moderately decreased right ventricular systolic function. Atria The left atrium is likely dilated. Interatrial shunt cannot be excluded. The right atrium is moderately dilated. Aortic Valve There is mild calcification of the aortic valve. There is no aortic valve stenosis. There is no aortic valve regurgitation. Mitral Valve There is mild anterior and posterior mitral leaflet thickening. There is mild mitral annular calcification. There is trace mitral valve regurgitation. There is no mitral valve stenosis. Pulmonic Valve The pulmonic valve was not well visualized. Tricuspid Valve Likely normal tricuspid valve structure and function. There is mild tricuspid valve regurgitation. Significantly elevated right atrial pressure. Great Vessels All visible segments of the aorta are normal in size. Small plaque is seen in the sino tubular ridge. Venous The inferior vena cava is severely dilated and does not collapse with inspiration. Pericardium/Pleural There is a small loculated pericardial effusion overlying the right atrium. Prior Study Comparison No prior study available for comparison. Measurements 2D Linear Measurements IVSd: 0.90 0.6-0.9/0.6-1.0 cm LVIDd: 5.53 3.9-5.3/4.2-5.9 cm LVIDd Index: 2.25 2.4-3.2/2.2-3.1 cm/m2 LVIDs: 3.24 2.0-3.6 cm LVPWd: 0.98 0.7-1.1 cm LA Diam: 4.90 2.7-3.8/3.0-4.0 cm LAIDs Index: 1.99 1.5-2.3 cm/m2 LV Mass: 246.75 67-162/88-224 g LV Mass Index: 100.31 43-95/49-115 g/m2 LVOT Diam: 2.30 3.0+(-)1.3 cm 2D Systolic Function EF 4C: 63.20 >55% EF 2C: 51.30 >55% EF BiP: 58.20 >55% Mitral Valve MV Pk E: 1.17 MV Decel Time: 176.00 E'Lateral: 15.00 E'Medial: 8.27 E/E' Med: 14.10 E/E' Lat: 7.80 Aortic Valve AoV Pk Wilner: 1.54 AoV Pk Grad: 9.00 LVOT LVOT Pk Wilner: 1.03 LVOT Mn Wilner: 0.68 LVOT VTI: 0.18 LVOT Pk Grad: 4.00 LVOT Mn Grad: 2.00 LVOT Diam: 2.30 LVOT Area: 4.15 Diastolic Function MV Pk E: 1.17 E'Medial: 8.27 E/E' Med: 14.10 E' Laterial: 15.00 E/E' Lat: 7.80 Right Ventricle TAPSE (mm): 14.60 TVS' Wilner: 9.25 Tricuspid Valve TR Pk Wilner: 2.41 TR Pk Grad: 23.00 RA Press: 15.00 RVSP: 38.00 Great Vessels Aorta Sinus of Valsalva: 3.50 2.0-3.5 cm Ao Asc: 3.40 2.1-3.4 cm Pulmonary Veins Pulm Vein S/D 0.50 Pulmonary Valve PV Pk Wilner: 0.96 Peak PV Grad: 4.00 Updated in Other Vendor System with Status of Final Carlos Berkowitz MD electronically signed on 11/04/2022 4:06:07 PM with status of Final
[2022-11-04 07:06] LABS: Alanine Aminotransferase 16 U/L (0-40); Albumin Level 3.7 g/dL (3.5-5.0); Alkaline Phosphatase 62 U/L (39-117); Anion Gap 14 (12-20); Aspartate Amino Transferase 41 U/L (5-37); Bilirubin Direct 1.6 mg/dL (0.0-0.5); Bilirubin Total 2.9 mg/dL (0.0-1.0); Blood Urea Nitrogen 16 mg/dL (9-16); Calcium 8.9 mg/dL (8.4-10.2); Carbon Dioxide 23 mmol/L (22-29); Chloride 99 mmol/L (96-108); Creatinine Clr Calc Pharmacy 141.6; Estimated Glomerular Filt Rate > 60; Glucose Random 88 mg/dL (60-115); Potassium 4.4 mmol/L (3.3-5.1); Sodium 132 mmol/L (135-145); Total Protein 8.7 g/dL (6.5-8.0)
[2022-11-04 07:27] VITALS: BP 117/67; PULSE 91; RESP 18; TEMP 36.8; O2SAT 97
[2022-11-04 07:29] LABS: HBS Num1 43.99 mIU/mL (0-7.99); HBc Num1 0.66 S/CO (0.00-0.79); HBsAGNum1 0.37 S/CO (0.00-0.99); Hepatitis B Core Antibody Nonreactive (Nonreactive); Hepatitis B Surface Antigen Negative (Negative); ~HepC Num1 0.38 S/CO (0.00-0.79); ~Hepatitis B Surface Antibody REACTIVE (Nonreactive); ~Hepatitis C Antibody Nonreactive (Nonreactive)
--- NOTE | 2022-11-04 07:52 | MHC.CM.PN ---
PATIENT LIVES WITH . HE IS FULLY INDEPENDENT NO DME OR VNA SERVICES HE HAS BEEN COVID VACCINATED X 3. HE IS UNABLE TO RECALL HIS PCP NAME BUT DOES STATE THAT HE IS IN [place], [place]. PLAN IS HOME - SELF CARE DOES NOT FEEL THE NEED FOR ANY SERVICES. CASE MANAGEMENT INFORMED PATIENT OF IMPORTANCE OF SECURING A HCP HE WILL CONSIDER AND ASK FOR CM IF HE CHOOSES TO DO SO TO TRANSPORT.
[2022-11-04 08:12] LABS: Glucose, Whole Blood 93 mg/dL (60-115)
[2022-11-04] MEDS: PHENobarbitaL 30 MG TABLET 60 MG PO ×2 (08:58→20:02)
[2022-11-04] MEDS: Spironolactone 25 MG TABLET 50 MG PO (08:58)
[2022-11-04] MEDS: Escitalopram Oxalate 10 MG TABLET PO (08:58)
[2022-11-04] MEDS: Thiamine HCL 100 MG TABLET PO (08:58)
[2022-11-04] MEDS: Folic Acid 1 MG TABLET PO (08:59)
[2022-11-04] MEDS: Lactulose 20 GM/30 ML SOLUTION PO ×2 (08:59→20:02)
[2022-11-04] MEDS: Furosemide 20 MG/2 ML VIAL IVPUSH (08:59)
[2022-11-04] MEDS: 0.9 % Sodium Chloride Flush 3 ML SYRINGE IVFLUSH ×3 (08:59→20:03)
[2022-11-04 11:30] LABS: Glucose, Whole Blood 128 mg/dL (60-115)
--- NOTE | 2022-11-04 12:17 | P.PNCA_ITS ---
Subjective Subjective Date of Service: 11/04/22 Principal diagnosis: Right-sided heart failure Interval history: Heriberto says that he came in because he was thought he had a heart problem denies having some chest discomfort but this seems to have improved as per him. He has leg edema is also improved. He has been diuresed although his intake output chart shows positive balance. Unclear as to that. He is currently on Lasix 20 mg IV as well as spironolactone. was present at bedside and says that patient does have difficulty breathing when he lays flat any stops breathing consistent with sleep apnea but never been diagnosed. He is also diagnose cirrh osis. He said his problems started after he drank too much during [place]. However he says his leg edema is improved. Review of Systems Constitutional: Reports no additional constitutional complaints Cardiovascular: Denies chest pain, Reports leg edema, Denies Loss of Consciousness, Denies palpitations and Reports orthopnea Respiratory: Reports no additional respiratory complaints Gastrointestinal: Reports no additional gastrointestinal complaints Musculoskeletal: Reports no additional musculoskeletal complaints Skin/Breast: Reports system reviewed and no additional complaints, except as docu Reports system reviewed and no additional complaints, except as documented Endocrine: Denies palpitations Physical Exam Vital Signs: Last Vital Signs Temp 98.3 F 11/04/22 07:27 Pulse 91 11/04/22 07:27 Resp 18 11/04/22 07:27 BP 117/67 11/04/22 07:27 Pulse Ox 97 11/04/22 07:27 O2 Del Method 11/04/22 07:27 O2 Flow Rate 4 11/04/22 07:27 BMI result Body Mass Index 44.5 Const General: cooperative, comfortable, no acute distress, alert and awake Nutritional Appearance: obese morbidly obese Neck Neck: Yes trachea midline, Yes supple and Yes no JVD Resp Effort & Inspection: normal respiratory effort Auscultation: clear to auscultation bilaterally GI Auscultation: normal bowel sounds Skin General skin exam: no rashes or lesions noted Neuro General: no focal motor deficits Extrem General: No clubbing, No cyanosis and Yes edema Objective Labs and Meds Result diagrams: 11/04/22 05:50 11/04/22 05:50 Lab results: Laboratory Results - last 24 hr 11/03/22 11/03/22 11/04/22 15:20 19:27 05:50 WBC 4.1 L RBC 3.28 L Hgb 8.5 L Hct 26.6 L MCV 81.1 MCH 25.9 L MCHC 32.0 RDW 19.7 H Plt Count 99 L MPV 9.8 Absolute Nucleated RBC 0.000 Nucleated RBC % (auto) 0.0 Sodium Potassium Chloride Carbon Dioxide Anion Gap BUN Creatinine Estim Creat Clear Calc Estimated GFR POC Glucose 153 H 117 H Random Glucose Calcium Total Bilirubin Direct Bilirubin AST ALT Alkaline Phosphatase Total Protein Albumin Hep Bs Antigen Hep Bs Antibody Hep B Core Total Ab Hepatitis C Ab (EIA) 11/04/22 11/04/22 11/04/22 05:50 05:50 07:31 WBC RBC Hgb Hct MCV MCH MCHC RDW Plt Count MPV Absolute Nucleated RBC Nucleated RBC % (auto) Sodium 132 L Potassium 4.4 Chloride 99 Carbon Dioxide 23 Anion Gap 14 BUN 16 Creatinine 0.99 Estim Creat Clear Calc 141.6 Estimated GFR > 60 POC Glucose 93 Random Glucose 88 Calcium 8.9 Total Bilirubin 2.9 H Direct Bilirubin 1.6 H AST 41 H ALT 16 Alkaline Phosphatase 62 Total Protein 8.7 H Albumin 3.7 Hep Bs Antigen Negative Hep Bs Antibody REACTIVE Hep B Core Total Ab Nonreactive Hepatitis C Ab (EIA) Nonreactive 11/04/22 11:22 WBC RBC Hgb Hct MCV MCH MCHC RDW Plt Count MPV Absolute Nucleated RBC Nucleated RBC % (auto) Sodium Potassium Chloride Carbon Dioxide Anion Gap BUN Creatinine Estim Creat Clear Calc Estimated GFR POC Glucose 128 H Random Glucose Calcium Total Bilirubin Direct Bilirubin AST ALT Alkaline Phosphatase Total Protein Albumin Hep Bs Antigen Hep Bs Antibody Hep B Core Total Ab Hepatitis C Ab (EIA) Progress Note: A&P Assessment and plan (1) Decompensated heart failure: Status: Acute Assessment and Plan: Decompensated congestive heart failure which appears to be mostly right-sided. This appears to be either related to portal hypertension causing pulmonary hypertension and/or obesity related hypoventilation and undiagnosed sleep apnea related pulmonary hypertension. He requires an echocardiogram to evaluate for right-sided function and size as EKGs consistent with RV strain and ischemia. Continue IV diuresis. Continue spironolactone. Advised strongly to abstain from alcohol on the long-term basis. Echocardiogram is pending which will decide further treatment plan. Will require sleep study as an outpatient. If he does have significant pulmonary hypertension will require right heart catheterization as outpatient as well. Will follow with you Time Spent With Patient Time: Total time spent is greater than 50% in coordination of care (as documented) at patient's floor/unit and/or counseling patient: Progress Note: Quality Stroke Does the patient have a stroke diagnosis?: No Procedures Date of Service Date of Service: 11/04/22
--- NOTE | 2022-11-04 14:21 | P.PNIM_ITS ---
Subjective Subjective Date of Service: 11/04/22 Interval History: follow up for chest pain, dyspnea, decompensated liver cirrhosis patient denies any chest pain at this time reporting improvement in breathing overall, but still with orthopnea, PND no abdominal pain, nausea, vomiting Review of Systems Review of Systems: Yes all other systems are reviewed and are negative Constitutional Constitutional: Denies chills and Denies fever(s) Cardiovascular Cardiovascular: Denies chest pain, Denies palpitations, Reports dyspnea on ex ertion, Reports orthopnea and Reports paroxysmal nocturnal dyspnea Respiratory Respiratory: Denies cough and Reports dyspnea on exertion Endocrine Endocrine: Denies palpitations Physical Exam Vital Signs: Vital Signs: Last Vital Signs Temp 98.3 F 11/04/22 07:27 Pulse 91 11/04/22 07:27 Resp 18 11/04/22 07:27 BP 117/67 11/04/22 07:27 Pulse Ox 97 11/04/22 07:27 O2 Del Method 11/04/22 07:27 O2 Flow Rate 4 11/04/22 07:27 BMI result Body Mass Index 44.5 Appearing in no acute distress lung sounds are clear to auscultation heart regular rate rhythm, clear S1, S2 positive bowel sounds, abdomen is soft, nontender neuro patient is alert x3, no focal deficits Objective Data Active Medications Acetaminophen (Acetaminophen 325 Mg Tablet) 650 mg PO Q6H PRN PRN Reason: Pain, Mild (Pain Scale 1-3) Dextrose (Dextrose 50 % 25 Gm/50 Ml Syringe) 25 gm IVPUSH Q15M PRN; Protocol PRN Reason: per Hypoglycemia Standing Ord. Escitalopram Oxalate (Escitalopram Oxalate 10 Mg Tablet) 10 mg PO DAILY [facility] Last Admin: 11/04/22 08:58 Dose: 10 mg Documented By: CARSON Folic Acid (Folic Acid 1 Mg Tablet) 1 mg PO DAILY [facility] Last Admin: 11/04/22 08:59 Dose: 1 mg Documented By: CARSON Furosemide (Furosemide 20 Mg/2 Ml Vial) 20 mg IVPUSH DAILY [facility]; Protocol Last Admin: 11/04/22 08:59 Dose: 20 mg Documented By: CARSON Glucose (Glucose Gel 15 Gm Gel..Gram.) 15 gm PO Q15M PRN; Protocol PRN Reason: per Hypoglycemia Standing Ord. Insulin Human Lispro (Insulin Lispro 100 Unit/Ml 3 Ml Vial) 0 unit SUBCUT QIDACHS [facility]; Protocol Last Admin: 11/04/22 12:07 Dose: Not Given Documented By: CARSON Non-Admin Reason: No Insulin Coverage Lactulose (Lactulose 20 Gm/30 Ml Solution) 20 gm PO BID [facility] Last Admin: 11/04/22 08:59 Dose: 20 gm Documented By: CARSON Melatonin (Melatonin 3 Mg Tablet) 6 mg PO BEDTIME PRN PRN Reason: Insomnia Ondansetron HCl (Ondansetron Hcl 4 Mg/2 Ml Vial) 4 mg IVPUSH Q8H PRN PRN Reason: Nausea and Vomiting Pharmacy Consult (Consult Rx Perform Med Rec) 1 each MISCELLANE ONCE PRN PRN Reason: Consult order Pharmacy Consult (Consult Rx Etoh Phenob Im/Po) 1 each MISCELLANE ONCE PRN; Protocol PRN Reason: Consult order Phenobarbital (Phenobarbital 30 Mg Tablet) 60 mg PO BID [facility]; Protocol Stop: 11/04/22 21:01 Last Admin: 11/04/22 08:58 Dose: 60 mg Documented By: CARSON Phenobarbital (Phenobarbital 30 Mg Tablet) 30 mg PO BID [facility]; Protocol Stop: 11/06/22 21:01 Phenobarbital (Phenobarbital 30 Mg Tablet) 30 mg PO DAILY [facility]; Protocol Stop: 11/08/22 09:01 Sodium Chloride (0.9 % Sodium Chloride Flush 3 Ml Syringe) 3 ml IVFLUSH [facility] Last Admin: 11/04/22 08:59 Dose: 3 ml Documented By: CARSON Spironolactone (Spironolactone 25 Mg Tablet) 50 mg PO DAILY [facility]; Protocol Last Admin: 11/04/22 08:58 Dose: 50 mg Documented By: CARSON Thiamine HCl (Thiamine Hcl 100 Mg Tablet) 100 mg PO DAILY [facility] Last Admin: 11/04/22 08:58 Dose: 100 mg Documented By: CARSON Labs CBC & Chem 7: 11/04/22 05:50 11/04/22 05:50 Labs: Laboratory Results - last 24 hr 11/03/22 11/03/22 11/04/22 15:20 19:27 05:50 MCV 81.1 MCH 25.9 L MCHC 32.0 RDW 19.7 H Plt Count 99 L MPV 9.8 Absolute Nucleated RBC 0.000 Nucleated RBC % (auto) 0.0 Anion Gap Estim Creat Clear Calc Estimated GFR POC Glucose 153 H 117 H Random Glucose Calcium Total Bilirubin Direct Bilirubin AST ALT Alkaline Phosphatase Total Protein Albumin Hep Bs Antigen Hep Bs Antibody Hep B Core Total Ab Hepatitis C Ab (EIA) 11/04/22 11/04/22 11/04/22 05:50 05:50 07:31 MCV MCH MCHC RDW Plt Count MPV Absolute Nucleated RBC Nucleated RBC % (auto) Anion Gap 14 Estim Creat Clear Calc 141.6 Estimated GFR > 60 POC Glucose 93 Random Glucose 88 Calcium 8.9 Total Bilirubin 2.9 H Direct Bilirubin 1.6 H AST 41 H ALT 16 Alkaline Phosphatase 62 Total Protein 8.7 H Albumin 3.7 Hep Bs Antigen Negative Hep Bs Antibody REACTIVE Hep B Core Total Ab Nonreactive Hepatitis C Ab (EIA) Nonreactive 11/04/22 11:22 MCV MCH MCHC RDW Plt Count MPV Absolute Nucleated RBC Nucleated RBC % (auto) Anion Gap Estim Creat Clear Calc Estimated GFR POC Glucose 128 H Random Glucose Calcium Total Bilirubin Direct Bilirubin AST ALT Alkaline Phosphatase Total Protein Albumin Hep Bs Antigen Hep Bs Antibody Hep B Core Total Ab Hepatitis C Ab (EIA) Assessment and Plan (1) Cirrhosis: Status: Acute (2) Chest pain: Status: Acute Plan This is a 36-year-old male with pertinent history of alcohol use disorder, liver cirrhosis, CHF, [id number] diabetes mellitus who presents to the emergency department for evaluation of abdominal swelling/leg swelling/generalized fatigability. Acute respiratory failure with hypoxia r/t decomensated liver cirrhosis/heart failure with preserved ejection fraction records obtained from [facility] - pt admitted 07/22-07/25 with sob treated for right heart failure and started on diuretics. ECHO with EF 55-60% with possible right ventricular dysfunction (study limited by body habitus) Follow I's and O's, Low-sodium diet Cardiology following and recommended repeat echocardiogram showing significant pulmonary hypertension will require right-sided heart catheterization as an outpatient supplemental oxygen, wean as toelrated Acute decompensated liver cirrhosis due to noncompliance with diuretics continue IV furosemide continue spironolactone having multiple BM, will decrease dose of lactulose Alcohol use disorder with likely impending alcohol withdrawal continue phenobarbatol protocol, supplementation with thiamine and folic acid Addiction medicine consult pending Hyponatremia likely r/t to hypervolemia r/t CHF/cirrhosis sodium up to 132 GARCIA. Baseline follow BMP Essential hypertension hold beta-yasmeen and AKIL-inhibitor for renal perfusion in cirrhosis Thrombocytopenia likely chronic due to cirrhosis follow CBC Elevated troponin trops have remained flat initially with chest pain, now resolved EKG with concerning changes, but no previous for comparison CTA with no central or lobar pulmonary embolus seen ; segmental and subsegmental vessels limited due to bolus timing Chronic anemia had planned for outpatient EGD/colonoscopy after d/c from [facility] follow CBC Coagulopathy. Secondary to liver disease Follow-up PT INR Heu-[id number]-[id number] diabetes mellitus hold metformin POCs, SSI Major depressive disorder and insomnia seen by psych, started on lexapro Morbid obesity BMI 44.5 weight loss encouraged DVT prophylaxis: Defer Lovenox due to thrombocytopenia. Attending Dr. Flor Full code Requires ongoing inpatient hospitalization for IV diuretics and workup for CHF and cirrhosis Quality Stroke Does the patient have a stroke diagnosis?: No VTE Prior VTE?: No VTE Risk Level:: Medical - moderate - high VTE Device Contraindication: Treatment Not Indicated VTE Drug Contraindication: Treatment Not Indicated
[2022-11-04 15:39] VITALS: BP 127/72; PULSE 94; RESP 16; TEMP 36.9; O2SAT 93
[2022-11-04 16:07] LABS: Glucose, Whole Blood 102 mg/dL (60-115)
[2022-11-04 19:26] VITALS: BP 145/65; PULSE 97; RESP 20; TEMP 37.1; O2SAT 93
[2022-11-04 19:34] LABS: Glucose, Whole Blood 127 mg/dL (60-115)
[2022-11-05 04:00] VITALS: BP 110/77; PULSE 89; RESP 18; TEMP 37.3; O2SAT 94
[2022-11-05 05:55] LABS: MANUAL DIFF FLAG NO
[2022-11-05 06:12] LABS: Anion Gap 13 (12-20); Blood Urea Nitrogen 13 mg/dL (9-16); Calcium 9.1 mg/dL (8.4-10.2); Carbon Dioxide 24 mmol/L (22-29); Chloride 98 mmol/L (96-108); Creatinine Clr Calc Pharmacy 143.1; Estimated Glomerular Filt Rate > 60; Glucose Random 88 mg/dL (60-115); Potassium 4.5 mmol/L (3.3-5.1); Sodium 130 mmol/L (135-145)
[2022-11-05 06:15] LABS: Alanine Aminotransferase 16 U/L (0-40); Albumin Level 3.6 g/dL (3.5-5.0); Alkaline Phosphatase 61 U/L (39-117); Aspartate Amino Transferase 36 U/L (5-37); Bilirubin Direct 1.3 mg/dL (0.0-0.5); Bilirubin Total 2.2 mg/dL (0.0-1.0); Total Protein 8.5 g/dL (6.5-8.0)
[2022-11-05 06:23] LABS: Basophils Percent Auto 0.3 % (0-2); Eosinophils Absolute Auto 0.2 X10*3/uL (0.0-0.4); Hematocrit 26.9 % (42.0-52.0); Hemoglobin 8.6 g/dl (14.0-18.0); Imm Gran Abs Auto 0.02 X10*3/uL (0.00-0.03); Imm Gran Pct Auto 0.5 % (0.0-0.4); Lymphocytes Absolute Auto 0.6 X10*3/uL (1.2-4.9); Lymphocytes Percent Auto 14.8 % (20-40); Mean Corpuscular Hemoglobin 26.2 pg (27.0-33.0); Mean Platelet Volume 9.6 fL (9.4-12.4); Monocytes Absolute Auto 0.5 X10*3/uL (0.1-1.2); Monocytes Percent Auto 13.2 % (2-11); Neutrophils Absolute Auto 2.5 x10*3/uL (2.0-8.3); Neutrophils Percent Auto 67.2 % (45-73); Platelet Count 92 X10*3/uL (160-400); Red Blood Count 3.28 X10*6/uL (4.60-5.80); Red Cell Distribution Width 19.7 % (11.0-16.0); White Blood Count 3.7 X10*3/uL (4.8-10.8)
[2022-11-05 07:35] VITALS: BP 105/66; PULSE 90; RESP 18; TEMP 36.6; O2SAT 94
[2022-11-05] MEDS: PHENobarbitaL 30 MG TABLET PO (08:12)
[2022-11-05] MEDS: Spironolactone 25 MG TABLET 50 MG PO (08:12)
[2022-11-05] MEDS: Thiamine HCL 100 MG TABLET PO (08:12)
[2022-11-05] MEDS: Folic Acid 1 MG TABLET PO (08:12)
[2022-11-05] MEDS: Escitalopram Oxalate 10 MG TABLET PO (08:12)
[2022-11-05] MEDS: Lactulose 20 GM/30 ML SOLUTION PO (08:12)
[2022-11-05] MEDS: Furosemide 20 MG/2 ML VIAL IVPUSH (08:12)
[2022-11-05] MEDS: 0.9 % Sodium Chloride Flush 3 ML SYRINGE IVFLUSH (08:13)
[2022-11-05 08:24] LABS: Glucose, Whole Blood 87 mg/dL (60-115)
--- NOTE | 2022-11-05 11:01 | PM.DS ---
DS: Providers Provider Date of Service: 11/05/22 Date of admission: 11/02/22 04:46 Primary care physician: Unknown Physician Consults: 11/02/22 04:49 Addiction Medicine Routine Consulting Provider: Addiction Covering Reason for consultation: alcohol use disorder Consult to Care Team Routine Comment: Reason for consultation: alcohol use disorder Consult to Psychiatry Routine Consulting Provider: Psych Covering Reason for consultation: major depressive disorder and insomnia 11/02/22 12:19 Consult to Cardiology Routine Consulting Provider: Abhi Velez Reason for consultation: chest pain, ekg changes Has provider been notified: No 11/03/22 12:25 Consult to Gastroenterology Routine Consulting Provider: Sue Valencia Reason for consultation: decomensated liver cirrhosis Has provider been notified: No Attending physician on discharge: Sanjeev [facility] Discharging clinician: Kelsy Ruiz DS: Diagnosis Discharge Diagnosis (1) Cirrhosis: Status: Acute (2) Chest pain: Status: Acute DS: Summary Hospital Course Hospital Course: History and physical as per admitting provider This is a 36-year-old male with pertinent history of alcohol use disorder, liver cirrhosis, CHF, [id number] diabetes mellitus who presents to the emergency department for evaluation of abdominal swelling/leg swelling/generalized fatigability.? Patient has vague complaints at the time of my evaluation.? He states he has pain all over including chest pain and abdominal pain.? Patient states he is not doing well since .? He has history of alcohol use disorder and had been sober for the past 2 months but since patient has been binge drinking.? States he has been drinking a lot of beer, whiskey and Tequila every day.? He has barely been eating or sleeping.? Last drink was on the day of presentation.? States he feels unwell.? Had episodes of sweating and nausea earlier.? Patient has also stopped taking his p.o. medications since .? Has not taken his Lasix or spironolactone over the last 1 week.? Patient was previously admitted at [facility] where he was significantly diuresed.? States he has noticed significant swelling in his bilateral lower extremities.? Also has abdominal swelling but no pain.? No fever, chills, palpitations, changes in urinary habits . Acute respiratory failure with hypoxia r/t decomensated liver cirrhosis/heart failure with preserved ejection fraction records obtained from [facility] - pt admitted 07/22-07/25 with sob treated for right heart failure and started on diuretics. ECHO with EF 55-60% with possible right ventricular dysfunction (study limited by body habitus) Cardiology following and recommended repeat echocardiogram showing EF of 55-60% with right ventricular pressure overload, elevated right atrial pressures, small loculated pericardial effusion. Patient to follow up with Cardiology in his office further management Acute decompensated liver cirrhosis due to noncompliance with diuretics treated with IV furosemide Alcohol use disorder with likely impending alcohol withdrawal continue phenobarbatol protocol, supplementation with thiamine and folic acid s/p Addiction medicine consult, resources offered Hyponatremia likely r/t to hypervolemia r/t CHF/cirrhosis sodium up to 132 GARCIA.? Baseline follow BMP Essential hypertension low BPs, stop lisinopril, continue BB Thrombocytopenia chronic due to cirrhosis Elevated troponin trops have remained flat initially with chest pain, now resolved EKG with concerning changes, but no previous for comparison CTA with no central or lobar pulmonary embolus seen ; segmental and subsegmental vessels limited due to bolus timing Chronic anemia had planned for outpatient EGD/colonoscopy after d/c from [facility] Coagulopathy.? Secondary to liver disease [id number]-[id number] diabetes mellitus continue home medications Major depressive disorder and insomnia seen by psych, started on lexapro Morbid obesity BMI 44.5 weight loss encouraged Time Spent with Patient Time attestation: Total time spent providing and/or coordinating discharge services: Discharge coordination time: Greater than 30 minutes Quality: Safe Use of Opioids Does Pt have an Active Cancer Diagnosis on the Problem List?: No Quality: Stroke Does the patient have a stroke diagnosis?: No Physical Exam Vital Signs: Vital Signs: Last Vital Signs Temp 97.8 F 11/05/22 07:35 Pulse 90 11/05/22 07:35 Resp 18 11/05/22 07:35 BP 105/66 11/05/22 07:35 Pulse Ox 94 11/05/22 07:35 O2 Del Method 11/05/22 07:35 O2 Flow Rate 4 11/05/22 07:35 BMI result Body Mass Index 44.5 Appearing in no acute distress head is normocephalic atraumatic eyes pupils are PERRLA sclera is anicteric mouth throat mucous membranes are intact and moist neck is supple no lymphadenopathy, no JVD noted lung sounds are clear to auscultation heart regular rate rhythm, clear S1, S2 positive bowel sounds, abdomen is soft, nontender neuro patient is alert x3, no focal deficits DS: Data Data Completed and Pending Labs on day of discharge: Laboratory Results - last 24 hr 11/04/22 11/04/22 11/04/22 11:22 15:42 19:29 WBC RBC Hgb Hct MCV MCH MCHC RDW Plt Count MPV Immature Gran % (Auto) Neut % (Auto) Lymph % (Auto) [place] % (Auto) Eos % (Auto) Baso % (Auto) Lymph # (Auto) [place] # (Auto) Eos # (Auto) Baso # (Auto) Abs Immat Gran (auto) Absolute Neuts (auto) Absolute Nucleated RBC Nucleated RBC % (auto) Sodium Potassium Chloride Carbon Dioxide Anion Gap BUN Creatinine Estim Creat Clear Calc Estimated GFR POC Glucose 128 H 102 127 H Random Glucose Calcium Total Bilirubin Direct Bilirubin AST ALT Alkaline Phosphatase Total Protein Albumin 11/05/22 11/05/22 11/05/22 05:24 05:24 05:24 WBC 3.7 L RBC 3.28 L Hgb 8.6 L Hct 26.9 L MCV 82.0 MCH 26.2 L MCHC 32.0 RDW 19.7 H Plt Count 92 L MPV 9.6 Immature Gran % (Auto) 0.5 H Neut % (Auto) 67.2 Lymph % (Auto) 14.8 L [place] % (Auto) 13.2 H Eos % (Auto) 4.0 Baso % (Auto) 0.3 Lymph # (Auto) 0.6 L [place] # (Auto) 0.5 Eos # (Auto) 0.2 Baso # (Auto) 0.0 Abs Immat Gran (auto) 0.02 Absolute Neuts (auto) 2.5 Absolute Nucleated RBC 0.000 Nucleated RBC % (auto) 0.0 Sodium 130 L Potassium 4.5 Chloride 98 Carbon Dioxide 24 Anion Gap 13 BUN 13 Creatinine 0.98 Estim Creat Clear Calc 143.1 Estimated GFR > 60 POC Glucose Random Glucose 88 Calcium 9.1 Total Bilirubin 2.2 H Direct Bilirubin 1.3 H AST 36 ALT 16 Alkaline Phosphatase 61 Total Protein 8.5 H Albumin 3.6 11/05/22 07:34 WBC RBC Hgb Hct MCV MCH MCHC RDW Plt Count MPV Immature Gran % (Auto) Neut % (Auto) Lymph % (Auto) [place] % (Auto) Eos % (Auto) Baso % (Auto) Lymph # (Auto) [place] # (Auto) Eos # (Auto) Baso # (Auto) Abs Immat Gran (auto) Absolute Neuts (auto) Absolute Nucleated RBC Nucleated RBC % (auto) Sodium Potassium Chloride Carbon Dioxide Anion Gap BUN Creatinine Estim Creat Clear Calc Estimated GFR POC Glucose 87 Random Glucose Calcium Total Bilirubin Direct Bilirubin AST ALT Alkaline Phosphatase Total Protein Albumin Discharge Plan Discharge Anticipated Discharge Date/Time: 11/05/22 10:18 Patient Disposition: Home, Self-Care Discharge Diagnosis: Acute respiratory failure with hypoxia secondary to decompensated liver cirrhosis and heart failure with preserved ejection fraction Alcohol use disorder Hyponatremia GARCIA Thrombocytopenia Anemia, chronic Coagulopathy Morbid obesity Referrals: Carlos Berkowitz MD [Physician] - 1 Week Discharge Medications: New folic acid 1 mg Tablet 1 mg PO DAILY Qty: 30 0RF thiamine mononitrate (vit B1) 100 mg Tablet 100 mg PO DAILY Qty: 30 0RF bumetanide 1 mg tablet 1 mg PO DAILY Qty: 30 0RF Continued metformin 500 mg tablet 1 tab PO BID furosemide 80 mg tablet 1 tab PO DAILY lisinopril 10 mg tablet 1 tab PO DAILY metoprolol succinate 25 mg tablet extended release 24 hr 1 tab PO DAILY spironolactone 50 mg tablet 1 tab PO DAILY Discharge Orders: Discharge Order (Routine); Ordered 11/05/22 Ordered By: Kelsy Ruiz Diet: Advance to usual diet Activity on Discharge: As tolerated Stand Alone Forms: Patient Portal Discharge page Care Plan Goals: Stop drinking alcohol Health Concerns: Acute respiratory failure with hypoxia secondary to decompensated liver cirrhosis and heart failure with preserved ejection fraction Alcohol use disorder Hyponatremia GARCIA Thrombocytopenia Anemia, chronic Coagulopathy Morbid obesity Plan of Treatment: Follow-up with Dr. Berkowitz, cardiology You have been started on a new medication called Bumex, please take as prescribed Assessment: See discharge summary
--- NOTE | 2022-11-05 11:12 | PM.PNCARD ---
Subjective Subjective Date of Service: 11/05/22 Principal diagnosis: Right-sided heart failure Interval history: Patient says he is feeling very well. Not been going a lot to the bathroom. His echocardiogram shows right-sided chamber enlargement along with elevated right atrial pressures with IVCD distended. He denies any worsening shortness of breath or chest pressure at this point time. He says his leg swelling is back to his baseline. Review of Systems Review of Systems Yes all other systems are reviewed and are negative Physical Exam Vital Signs: Last Vital Signs Temp 97.8 F 11/05/22 07:35 Pulse 90 11/05/22 07:35 Resp 18 11/05/22 07:35 BP 105/66 11/05/22 07:35 Pulse Ox 94 11/05/22 07:35 O2 Del Method 11/05/22 07:35 O2 Flow Rate 4 11/05/22 07:35 BMI result Body Mass Index 44.5 Const General: cooperative, comfortable, no acute distress, alert and awake Nutritional Appearance: obese morbidly obese Neck Neck: Yes trachea midline, Yes supple and Yes no JVD Resp Effort & Inspection: normal respiratory effort Auscultation: clear to auscultation bilaterally GI Auscultation: normal bowel sounds Skin General skin exam: no rashes or lesions noted Neuro General: no focal motor deficits Extrem General: No clubbing, No cyanosis and Yes edema Objective Labs and Meds Result diagrams: 11/05/22 05:24 11/05/22 05:24 Lab results: Laboratory Results - last 24 hr 11/04/22 11/04/22 11/04/22 11:22 15:42 19:29 WBC RBC Hgb Hct MCV MCH MCHC RDW Plt Count MPV Immature Gran % (Auto) Neut % (Auto) Lymph % (Auto) [place] % (Auto) Eos % (Auto) Baso % (Auto) Lymph # (Auto) [place] # (Auto) Eos # (Auto) Baso # (Auto) Abs Immat Gran (auto) Absolute Neuts (auto) Absolute Nucleated RBC Nucleated RBC % (auto) Sodium Potassium Chloride Carbon Dioxide Anion Gap BUN Creatinine Estim Creat Clear Calc Estimated GFR POC Glucose 128 H 102 127 H Random Glucose Calcium Total Bilirubin Direct Bilirubin AST ALT Alkaline Phosphatase Total Protein Albumin 11/05/22 11/05/22 11/05/22 05:24 05:24 05:24 WBC 3.7 L RBC 3.28 L Hgb 8.6 L Hct 26.9 L MCV 82.0 MCH 26.2 L MCHC 32.0 RDW 19.7 H Plt Count 92 L MPV 9.6 Immature Gran % (Auto) 0.5 H Neut % (Auto) 67.2 Lymph % (Auto) 14.8 L [place] % (Auto) 13.2 H Eos % (Auto) 4.0 Baso % (Auto) 0.3 Lymph # (Auto) 0.6 L [place] # (Auto) 0.5 Eos # (Auto) 0.2 Baso # (Auto) 0.0 Abs Immat Gran (auto) 0.02 Absolute Neuts (auto) 2.5 Absolute Nucleated RBC 0.000 Nucleated RBC % (auto) 0.0 Sodium 130 L Potassium 4.5 Chloride 98 Carbon Dioxide 24 Anion Gap 13 BUN 13 Creatinine 0.98 Estim Creat Clear Calc 143.1 Estimated GFR > 60 POC Glucose Random Glucose 88 Calcium 9.1 Total Bilirubin 2.2 H Direct Bilirubin 1.3 H AST 36 ALT 16 Alkaline Phosphatase 61 Total Protein 8.5 H Albumin 3.6 11/05/22 07:34 WBC RBC Hgb Hct MCV MCH MCHC RDW Plt Count MPV Immature Gran % (Auto) Neut % (Auto) Lymph % (Auto) [place] % (Auto) Eos % (Auto) Baso % (Auto) Lymph # (Auto) [place] # (Auto) Eos # (Auto) Baso # (Auto) Abs Immat Gran (auto) Absolute Neuts (auto) Absolute Nucleated RBC Nucleated RBC % (auto) Sodium Potassium Chloride Carbon Dioxide Anion Gap BUN Creatinine Estim Creat Clear Calc Estimated GFR POC Glucose 87 Random Glucose Calcium Total Bilirubin Direct Bilirubin AST ALT Alkaline Phosphatase Total Protein Albumin Progress Note: A&P Assessment and plan (1) Decompensated heart failure: Status: Acute Assessment and Plan: Decompensated right heart failure predominantly. He says he is feeling a lot better since being here. Would switch him to p.o. Bumex 1 mg. CHF education to be provided to him. Will need outpatient workup including a sleep study and right and left heart catheterization given his pulmonary hypertension to evaluate for further treatment options for him. Will set him up for follow-up as outpatient. Plan of care was discussed with him. Complete cessation of alcohol was discussed. He like to follow-up locally. She is set him up for GI follow-up here. Importance of weight reduction a long run was discussed. Follow up with us in 2-4 weeks Time Spent With Patient Time: Total time spent is greater than 50% in coordination of care (as documented) at patient's floor/unit and/or counseling patient: Progress Note: Quality Stroke Does the patient have a stroke diagnosis?: No Procedures Date of Service Date of Service: 11/05/22
--- NOTE | 2022-11-05 11:14 | MHC.CM.PN ---
PT MEDICALLY CLEARED FOR D/C HOME NO SERVICES W/ FOR TRANSPORT
--- NOTE | 2022-11-05 12:50 | MHC.RECOVRN ---
Met with pt prior to discharge to provide information regarding [facility] and recovery support resources. Pt difficult to engage in conversation, states I'll look it over and let you know. Pt encouraged to reach out to t/w and/or [facility] if pt would like to continue outpatient care. Denies questions or concerns.
== END 2022-11-05 11:36 | disposition home or self-care (01) | DRG 194 ==
LOC: HO.ED 11-02 02:02 → HO.EDOVER 11-02 04:51 → HO.S3 11-02 19:56
PROVIDERS: Emergency Medicine Emergency Medical Services; Internal Medicine Gastroenterology; Physician Assistant Medical; Admitting Provider Student in an Organized Health Care Education/Training Program; Emergency Provider Emergency Medicine Emergency Medical Services; Visit Provider Nurse Practitioner Acute Care
DX: I11.0 Hypertensive heart disease with heart failure (principal); N17.9 Acute kidney failure, unspecified; E86.1 Hypovolemia; E87.1 Hypo-osmolality and hyponatremia; F33.1 Major depressive disorder, recurrent, moderate; E66.2 Morbid (severe) obesity with alveolar hypoventilation; I27.20 Pulmonary hypertension, unspecified; E11.9 Type 2 diabetes mellitus without complications; D69.59 Other secondary thrombocytopenia; I50.33 Acute on chronic diastolic (congestive) heart failure; E78.00 Pure hypercholesterolemia, unspecified; T50.2X6A Underdosing of carbonic-anhydrase inhibitors, benzothiadiazides and other diuretics, initial encounter; K70.30 Alcoholic cirrhosis of liver without ascites; I50.813 Acute on chronic right heart failure; Z68.41 Body mass index [BMI] 40.0-44.9, adult; I10 Essential (primary) hypertension; R94.31 Abnormal electrocardiogram [ECG] [EKG]; F10.129 Alcohol abuse with intoxication, unspecified; Y90.6 Blood alcohol level of 120-199 mg/100 ml; Z20.822 Contact with and (suspected) exposure to COVID-19; Z79.899 Other long term (current) drug therapy
CPT/HCPCS: 0241U; 36415; 71045; 71275; 74177; 80048; 80076; 82009; 82077; 82746; 82803; 82947; 83540; 83605; 83690; 83735; 83880; 83930; 83935; 84300; 84484; 85025; 85027; 85379; 85610; 86704; 86706; 86803; 87340; 93005; 93306; 99285; J1940; J2560; Q9957; Q9967

== ENCOUNTER → 2022-11-20 14:08 | Outpatient (REF) | payer MEDICAID, OTHER, SELFPAY | LOC: HO.SL 14:08 | PROVIDERS: Visit Provider Nurse Practitioner Family | DX: G47.33 Obstructive sleep apnea (adult) (pediatric) (principal) | CPT/HCPCS: 95806 ==

== ENCOUNTER 2023-01-13 09:32 | Outpatient (REF) | payer MEDICAID, OTHER, SELFPAY ==
[2023-01-13 09:54] LABS: MANUAL DIFF FLAG NO
[2023-01-13 10:49] LABS: Basophils Percent Auto 0.3 % (0-2); Eosinophils Absolute Auto 0.1 X10*3/uL (0.0-0.4); Eosinophils Percent Auto 3.8 % (0-4); Hematocrit 28.5 % (42.0-52.0); Hemoglobin 8.9 g/dl (14.0-18.0); Imm Gran Abs Auto 0.01 X10*3/uL (0.00-0.03); Imm Gran Pct Auto 0.3 % (0.0-0.4); Lymphocytes Absolute Auto 0.8 X10*3/uL (1.2-4.9); Lymphocytes Percent Auto 25.6 % (20-40); Mean Corpuscular HGB Conc 31.2 g/dl (31.0-36.0); Mean Corpuscular Volume 80.1 fL (80.0-98.0); Mean Platelet Volume 9.9 fL (9.4-12.4); Monocytes Absolute Auto 0.4 X10*3/uL (0.1-1.2); Monocytes Percent Auto 13.6 % (2-11); Neutrophils Absolute Auto 1.8 x10*3/uL (2.0-8.3); Neutrophils Percent Auto 56.4 % (45-73); Platelet Count 108 X10*3/uL (160-400); Red Blood Count 3.56 X10*6/uL (4.60-5.80); Red Cell Distribution Width 17.3 % (11.0-16.0); White Blood Count 3.2 X10*3/uL (4.8-10.8)
[2023-01-13 10:54] LABS: INTERNATIONAL NORM RATIO 1.5 (0.9-1.1); Prothrombin Time 17.9 SEC (10.0-13.1)
[2023-01-13 11:08] LABS: Estimated Average Glucose 100 mg/dL; Hemoglobin A1c % 5.1 %
[2023-01-13 11:13] LABS: B Type Natriuretic Peptide 474 pg/mL (<100)
[2023-01-13 11:18] LABS: Anion Gap 14 (12-20); Blood Urea Nitrogen 13 mg/dL (9-16); Calcium 8.9 mg/dL (8.4-10.2); Carbon Dioxide 21 mmol/L (22-29); Chloride 106 mmol/L (96-108); Estimated Glomerular Filt Rate > 60; Glucose Random 101 mg/dL (60-115); Sodium 137 mmol/L (135-145)
[2023-01-13 11:37] LABS: Alanine Aminotransferase 15 U/L (0-40); Albumin Level 3.7 g/dL (3.5-5.0); Alkaline Phosphatase 67 U/L (39-117); Anion Gap 13 (12-20); Aspartate Amino Transferase 31 U/L (5-37); Bilirubin Total 2.3 mg/dL (0.0-1.0); Blood Urea Nitrogen 13 mg/dL (9-16); Carbon Dioxide 22 mmol/L (22-29); Chloride 106 mmol/L (96-108); Cholesterol 104 mg/dL; Estimated Glomerular Filt Rate > 60; Glucose Random 102 mg/dL (60-115); HDL Cholesterol 39 mg/dL; LDL Cholesterol Calculated 57 mg/dl; Sodium 137 mmol/L (135-145); Total Protein 8.3 g/dL (6.5-8.0); Triglycerides 41 mg/dL
[2023-01-13 11:54] LABS: Folate > 20.0 ng/mL (> or = 4.0)
[2023-01-20 05:13] LABS: Vitamin B1 64 nmol/L (8-30)
== END 2023-01-13 09:33 | disposition home or self-care (01) ==
LOC: HO.LAB 09:32
PROVIDERS: Internal Medicine Cardiovascular Disease; PCP Nurse Practitioner Community Health; Visit Provider Nurse Practitioner Community Health
DX: K70.30 Alcoholic cirrhosis of liver without ascites (principal); I27.20 Pulmonary hypertension, unspecified; G47.30 Sleep apnea, unspecified; E78.2 Mixed hyperlipidemia; I50.32 Chronic diastolic (congestive) heart failure; E11.9 Type 2 diabetes mellitus without complications
CPT/HCPCS: 36415; 80048; 80053; 80061; 82746; 83036; 83880; 84425; 85025; 85610